=== PATIENT | female | born 1955 | race Caucasian/White ===

== ENCOUNTER 2017-09-27 21:15 | Emergency (ER) | payer OTHER ==
[2017-09-27 21:25] VITALS: BP 114/75; PULSE 90; RESP 18; TEMP 98.2
[2017-09-27] MEDS ORDERED: LIDOCAINE 1% INJ 10MG/ML (20 ML MDV) SQ ONE (22:04)
--- NOTE | 2017-09-27 22:08 | ED ---
Wound/Laceration HPI - General Chief Complaint: Wound/Laceration Stated Complaint: leg lac Time Seen by Provider: 09/27/17 21:45 Source: patient, RN notes reviewed Mode of arrival: wheelchair Limitations: no limitations - History of Present Illness Initial Comments: This is a 61-year-old female who presents to the emergency department with chief complaint of right leg laceration. Patient states that approximately one and half hours ago she ran into the corner of a sheet of wood. She states that she sustained a laceration to her right castle. Patient does state that she is up -to-date with her tetanus vaccination. Patient states that she is currently on Brilinta, a blood thinner. Denies any other injuries or trauma. Denies fevers or chills, chest pain or shortness of breath, abdominal pain, nausea or vomiting. - Related Data Allergies Allergy/AdvReac Type Severity Reaction Status Date / Time naproxen [From Aleve] Allergy Anaphylaxis Verified 09/27/17 21:22 Review of Systems ROS Statement: Those systems with pertinent positive or pertinent negative responses have been documented in the HPI. ROS Other: All systems not noted in ROS Statement are negative. Past Medical History Past Medical History: Osteoarthritis (OA) History of Any Multi-Drug Resistant Organisms: None Reported Past Surgical History: Back Surgery, Cholecystectomy, Heart Catheterization With Stent, Hysterectomy, Joint Replacement Smoking Status: Never smoker Past Alcohol Use History: None Reported Past Drug Use History: None Reported General Exam - General Exam Comments Initial Comments: General: Awake and alert, well-developed; in no apparent distress. HEENT: Head atraumatic, normocephalic. Pupils are equal, round and reactive to light. Extraocular movements intact. Oropharynx moist without erythema or exudate. Neck: Supple. Normal ROM. Cardiovascular: Regular rate and rhythm. No murmurs, rubs or gallops. Chest symmetrical. Pedal pulses are 2+ equal and palpable bilaterally. Respiratory: Lungs clear to auscultation bilaterally. No wheezes, rales or rhonchi. Normal respiratory effort with no use of accessory muscles. Musculoskeletal: Normal ROM, no tenderness bilateral upper and lower extremities. Skin: [place], warm and dry with an approximately 10 cm "L-shaped" laceration to the right mid castle. Bleeding remains active but easily controlled and minimal. Neurological: Alert and oriented x3. CN II-XII grossly intact. Speech is fluent and answers are appropriate. No focal neuro deficits. Psychiatric: Normal mood and affect. No overt signs of depression or anxiety noted. Limitations: no limitations Course Vital Signs 09/27/17 21:22 Temperature 98.2 F Pulse Rate 90 Respiratory 18 Rate Blood Pressure 114/75 O2 Sat by Pulse 97 Oximetry Procedures - Laceration Laceration #1 Consent Obtained: verbal consent Indication: laceration Site: lower extremity (right mid castle) Size (cm): 10 Description: flap ("L-shaped") Depth: simple, single layer Anesthesia Technique: local infiltration Amount (mls): 5 Pre-repair: wound explored, irrigated extensively, deep structures intact Type of Sutures: nylon Size of Sutures: 3-0 Number of Sutures: 11 Technique: simple, interrupted Patient Tolerated Procedure: well, no complications Medical Decision Making - Medical Decision Making This is a 61-year-old female who presented to the emergency department with chief complaint of right castle laceration. Patient ran into a sheet of wood. She sustained an approximately 10 cm "L-shaped" laceration to the right mid castle. Patient is currently on Brilinta, a blood thinner. An x-ray was obtained which revealed no acute bony abnormalities. Wound was irrigated extensively and 11 sutures were placed. Patient tolerated well without complication. She is neurovascularly intact. Recommended removal of sutures in 10-14 days. Recommended monitoring for any signs of infection. Patient states that she is up-to-date with tetanus vaccination. Vital signs are stable and patient is in no acute distress. She will be discharged home at this time. All questions answered. - Radiology Data Radiology results: report reviewed, image reviewed X-ray right tibia and fibula impression: No bony abnormality. Soft tissue swelling. Disposition Clinical Impression: Laceration of right leg excluding thigh Disposition: HOME SELF-CARE Condition: Good Instructions: Care For Your Stitches (ED), Laceration (ED) Additional Instructions: Please have sutures removed in 10-14 days. Please monitor for any signs of infection including increase in redness, swelling and warmth to the area. Please follow up with primary care provider within 1-2 days. Return to emergency department if symptoms should worsen or any concerns arise. Is patient prescribed a controlled substance at d/c from ED?: No Referrals: Nonstaff,Physician [Primary Care Provider] - 1-2 days Time of Disposition: 22:52
--- NOTE | 2017-09-27 22:24 | XR ---
EXAMINATION TYPE: XR tibia fibula RT DATE OF EXAM: 09/27/2017 COMPARISON: NONE HISTORY: Laceration TECHNIQUE: 2 views FINDINGS: There is a right knee prosthesis. I see no fracture nor dislocation. Ankle joint appears in tact. There is anterior soft tissue swelling over the lower tibia. IMPRESSION: No bony abnormality. Soft tissue swelling.
== END 2017-09-27 23:17 | disposition home or self-care (01) ==
LOC: EC 21:15
DX: S81.811A Laceration without foreign body, right lower leg, initial encounter (principal); Z88.6 Allergy status to analgesic agent; Z95.5 Presence of coronary angioplasty implant and graft; W45.8XXA Other foreign body or object entering through skin, initial encounter; Y93.02 Activity, running
CPT/HCPCS: 73590; 99283; 12004; J2001

== ENCOUNTER 2020-08-27 20:23 | Emergency (ER) | payer MEDICARE, OTHER ==
[2020-08-27] MEDS ORDERED: methylPREDNISolone SOD SUCCI 125 MG/2 ML VIAL IV STA (21:00)
[2020-08-27] MEDS ORDERED: IPRATROPIUM-ALBUTEROL 3 ML NEB INHALATION STA (21:00)
[2020-08-27 21:06] VITALS: TEMP 97.9
--- NOTE | 2020-08-27 21:22 | ED ---
General Adult HPI - General Chief complaint: Shortness of Breath Stated complaint: TOMY Time Seen by Provider: 08/27/20 20:41 Source: EMS Mode of arrival: EMS Limitations: no limitations - History of Present Illness Initial comments: 64-year-old female presents to the emergency room for a chief complaint of shortness of breath. Patient reports she has a history of chronic bronchitis and COPD and feels like she is having a flare. She also has a head cold consisting of congestion, and cough. Patient states this started about 4 days ago but has worsened over the past 2 days. States she has been doing her breathing treatments at home but feel she needs steroids. She denies chest pain.Patient has no other complaints at this time including chest pain, abdominal pain, nausea or vomiting, headache, or visual changes. - Related Data Previous Rx's Medication Instructions Recorded RX: Azithromycin [Zithromax Z-pack 250 mg PO DIRECTED #6 tab 08/27/20 (6 tabs)] RX: predniSONE 50 mg PO DAILY #5 tablet 08/27/20 Allergies Allergy/AdvReac Type Severity Reaction Status Date / Time naproxen [From Aleve] Allergy Anaphylaxis Verified 09/27/17 21:22 Review of Systems ROS Statement: Those systems with pertinent positive or pertinent negative responses have been documented in the HPI. ROS Other: All systems not noted in ROS Statement are negative. Past Medical History Past Medical History: Osteoarthritis (OA) History of Any Multi-Drug Resistant Organisms: None Reported Past Surgical History: Back Surgery, Cholecystectomy, Heart Catheterization With Stent, Hysterectomy, Joint Replacement Past Psychological History: No Psychological Hx Reported Past Alcohol Use History: None Reported Past Drug Use History: None Reported General Exam Limitations: no limitations General appearance: alert, in no apparent distress Head exam: Present: atraumatic, normocephalic, normal inspection Eye exam: Present: normal appearance, PERRL, EOMI. Absent: scleral icterus, conjunctival injection, periorbital swelling ENT exam: Present: normal exam, mucous membranes moist Neck exam: Present: normal inspection. Absent: tenderness, meningismus, lymphadenopathy Respiratory exam: Present: wheezes Cardiovascular Exam: Present: regular rate, normal rhythm, normal heart sounds. Absent: systolic murmur, diastolic murmur, rubs, gallop, clicks GI/Abdominal exam: Present: soft, normal bowel sounds. Absent: distended, tenderness, guarding, rebound, rigid Course Vital Signs 08/27/20 08/27/20 08/27/20 20:58 21:48 22:12 Temperature 97.9 F Pulse Rate 87 84 92 Respiratory 22 Rate Blood Pressure 148/80 O2 Sat by Pulse 92 L Oximetry EKG Findings - EKG Comments: EKG Findings:: Normal sinus rhythm, ventricular rate 83, PA interval 148, QTC 462 Medical Decision Making - Medical Decision Making Vitals are stable. Patient is well-appearing. She is wheezy on exam but no respiratory distress. Initially 92% on room air. She adamantly refuses COVID- 19 test despite my strong recommendation to have this performed. CBC CMP unremarkable. EKG does not show any evidence of ST elevation. Troponin negative. Chest x-ray reveals pleural reaction and atelectasis at the lung base without heart failure. Patient was given a breathing treatment in the emesis as well as 2 DuoNeb's here in the ER and IV steroids. Patient is feeling significantly better. I did offer patient admission to the hospital but she adamantly wants to go home. We will start her on oral steroids and a Z-Deion. She will return for worsening symptoms otherwise follow-up with primary care. - Lab Data Result diagrams: 08/27/20 21:07 08/27/20 21:07 Lab Results 08/27/20 08/27/20 08/27/20 Range/Units 21:07 21:07 21:07 WBC 7.0 (3.8-10.6) k/uL RBC 4.25 (3.80-5.40) m/uL Hgb 14.0 (11.4-16.0) gm/dL Hct 42.3 (34.0-46.0) % MCV 99.4 (80.0-100.0) fL MCH 33.0 (25.0-35.0) pg MCHC 33.2 (31.0-37.0) g/dL RDW 13.8 (11.5-15.5) % Plt Count 175 (150-450) k/uL MPV 8.6 Neutrophils % 63 % Lymphocytes % 22 % Monocytes % 10 % Eosinophils % 3 % Basophils % 1 % Neutrophils # 4.4 (1.3-7.7) k/uL Lymphocytes # 1.6 (1.0-4.8) k/uL Monocytes # 0.7 (0-1.0) k/uL Eosinophils # 0.2 (0-0.7) k/uL Basophils # 0.1 (0-0.2) k/uL PT 9.9 (9.0-12.0) sec INR 0.9 (<1.2) APTT 20.1 L (22.0-30.0) sec Sodium 139 (137-145) mmol/L Potassium 4.1 (3.5-5.1) mmol/L Chloride 108 H (98-107) mmol/L Carbon Dioxide 26 (22-30) mmol/L Anion Gap 5 mmol/L BUN 10 (7-17) mg/dL Creatinine 1.00 (0.52-1.04) mg/dL Est GFR (CKD-EPI)AfAm 68 (>60 ml/min/1.73 sqM) Est GFR (CKD-EPI)NonAf 59 (>60 ml/min/1.73 sqM) Glucose 103 H (74-99) mg/dL Calcium 8.4 (8.4-10.2) mg/dL Total Bilirubin 0.3 (0.2-1.3) mg/dL AST 26 (14-36) U/L ALT 18 (4-34) U/L Alkaline Phosphatase 64 (38-126) U/L Troponin I (0.000-0.034) ng/mL NT-Pro-B Natriuret Pep pg/mL Total Protein 5.8 L (6.3-8.2) g/dL Albumin 3.4 L (3.5-5.0) g/dL 08/27/20 08/27/20 Range/Units 21:07 21:07 WBC (3.8-10.6) k/uL RBC (3.80-5.40) m/uL Hgb (11.4-16.0) gm/dL Hct (34.0-46.0) % MCV (80.0-100.0) fL MCH (25.0-35.0) pg MCHC (31.0-37.0) g/dL RDW (11.5-15.5) % Plt Count (150-450) k/uL MPV Neutrophils % % Lymphocytes % % Monocytes % % Eosinophils % % Basophils % % Neutrophils # (1.3-7.7) k/uL Lymphocytes # (1.0-4.8) k/uL Monocytes # (0-1.0) k/uL Eosinophils # (0-0.7) k/uL Basophils # (0-0.2) k/uL PT (9.0-12.0) sec INR (<1.2) APTT (22.0-30.0) sec Sodium (137-145) mmol/L Potassium (3.5-5.1) mmol/L Chloride (98-107) mmol/L Carbon Dioxide (22-30) mmol/L Anion Gap mmol/L BUN (7-17) mg/dL Creatinine (0.52-1.04) mg/dL Est GFR (CKD-EPI)AfAm (>60 ml/min/1.73 sqM) Est GFR (CKD-EPI)NonAf (>60 ml/min/1.73 sqM) Glucose (74-99) mg/dL Calcium (8.4-10.2) mg/dL Total Bilirubin (0.2-1.3) mg/dL AST (14-36) U/L ALT (4-34) U/L Alkaline Phosphatase (38-126) U/L Troponin I <0.012 (0.000-0.034) ng/mL NT-Pro-B Natriuret Pep 332 pg/mL Total Protein (6.3-8.2) g/dL Albumin (3.5-5.0) g/dL Disposition Clinical Impression: COPD exacerbation Disposition: HOME SELF-CARE Condition: Fair Instructions (If sedation given, give patient instructions): COPD (Chronic Obstructive Pulmonary Disease) (ED) Additional Instructions: Please take steroid and antibiotic starting tomorrow as you were given a dose here in the ER tonight. Please follow-up with your doctor in one to 2 days. If symptoms are worsening at home return to the emergency room. Prescriptions: RX: predniSONE 50 mg PO DAILY #5 tablet RX: Azithromycin [Zithromax Z-pack (6 tabs)] 250 mg PO DIRECTED #6 tab Is patient prescribed a controlled substance at d/c from ED?: No Referrals: Nonstaff,Physician [Primary Care Provider] - 1-2 days Time of Disposition: 22:34
[2020-08-27 21:26] LABS: Basophils # (A) 0.1 k/uL (0-0.2); Basophils % (A) 1 %; Eosinophils # (A) 0.2 k/uL (0-0.7); Eosinophils % (A) 3 %; HCT 42.3 % (34.0-46.0); Lymphocytes # (A) 1.6 k/uL (1.0-4.8); Lymphocytes % (A) 22 %; MCHC 33.2 g/dL (31.0-37.0); MCV 99.4 fL (80.0-100.0); Mean Platelet Volume 8.6; Monocytes # (A) 0.7 k/uL (0-1.0); Monocytes % (A) 10 %; Neutrophils # (A) 4.4 k/uL (1.3-7.7); Neutrophils % (A) 63 %; Platelet Count 175 k/uL (150-450); RBC 4.25 m/uL (3.80-5.40); RDW 13.8 % (11.5-15.5)
--- NOTE | 2020-08-27 21:34 | XR ---
EXAMINATION TYPE: XR chest 2V DATE OF EXAM: 08/27/2020 COMPARISON: NONE HISTORY: Difficulty breathing TECHNIQUE: 2 views FINDINGS: Heart appears borderline enlarged. There is no heart failure. There is some mild linear den sity at the lung bases. Bony thorax is intact. There is no pleural effusion. IMPRESSION: There is some pleural reaction and atelectasis at the lung bases. No heart failure.
[2020-08-27 21:42] LABS: INR 0.9 (<1.2); Prothrombin Time 9.9 sec (9.0-12.0)
[2020-08-27 21:48] LABS: Partial Thromboplastin Time 20.1 sec (22.0-30.0)
[2020-08-27 21:51] LABS: Albumin 3.4 g/dL (3.5-5.0); Calcium 8.4 mg/dL (8.4-10.2); Total Bilirubin 0.3 mg/dL (0.2-1.3); Total Protein 5.8 g/dL (6.3-8.2)
[2020-08-27 22:19] LABS: Potassium 4.1 mmol/L (3.5-5.1)
[2020-08-27] MEDS ORDERED: AZITHROMYCIN 500 MG TAB PO STA (22:32)
[2020-08-27 23:01] VITALS: BP 133/71; PULSE 78; RESP 20
== END 2020-08-27 23:01 | disposition home or self-care (01) ==
LOC: EC 20:23
DX: J44.1 Chronic obstructive pulmonary disease with (acute) exacerbation (principal); M19.90 Unspecified osteoarthritis, unspecified site
CPT/HCPCS: 36415; 94640; 93005; 83880; 80053; 84484; 85025; 85610; 85730; 71046; 99285; 96374; J2930

== ENCOUNTER 2020-08-30 20:02 | Observation (INO) | payer MEDICARE, OTHER ==
[2020-08-30] MEDS ORDERED: ASPIRIN 81 MG PO STA (20:27)
[2020-08-30] MEDS ORDERED: NITROGLYCERIN SL TABS 0.4 MG TAB SUBLINGUAL STA (20:27)
[2020-08-30 20:42] LABS: Basophils % (A) 0 %; Eosinophils # (A) 0.1 k/uL (0-0.7); Eosinophils % (A) 1 %; HCT 44.3 % (34.0-46.0); HGB 13.7 gm/dL (11.4-16.0); Lymphocytes # (A) 1.3 k/uL (1.0-4.8); Lymphocytes % (A) 11 %; MCH 31.3 pg (25.0-35.0); MCHC 30.9 g/dL (31.0-37.0); MCV 101.3 fL (80.0-100.0); Macrocytosis Slight; Mean Platelet Volume 8.7; Monocytes # (A) 0.7 k/uL (0-1.0); Monocytes % (A) 6 %; Neutrophils # (A) 10.2 k/uL (1.3-7.7); Neutrophils % (A) 82 %; Platelet Count 187 k/uL (150-450); RBC 4.37 m/uL (3.80-5.40); RDW 13.9 % (11.5-15.5); WBC 12.4 k/uL (3.8-10.6)
--- NOTE | 2020-08-30 20:46 | ED ---
Chest Pain HPI - General Chief Complaint: Chest Pain Stated Complaint: Chest Pain, TOMY Time Seen by Provider: 08/30/20 20:06 Source: patient, EMS Mode of arrival: EMS Limitations: no limitations - History of Present Illness Initial Comments: Is a 64-year-old female to history of CAD, CHF who presents emergency department for chest pain. The patient states it started about an hour or so prior to arrival. She describes as a pressure-like sensation in the center of her chest. She states it's nonradiating. Not worse with anything in particular. She did take a nitroglycerin tablet home without any relief. She did not take any aspirin today. She denies any lower [place] pain or swelling. Patient states that she was seen here few days ago and diagnosed with bronchopneumonia. She was started on steroids and antibiotics. She states that she has been feeling improved however then developed chest pain today. She denies any lightheadedness, nausea, sweatiness. The patient does state that she recently moved back from [place] and drove was about 3 weeks ago. - Related Data Home Medications Medication Instructions Recorded Confirmed Advair (Unknown Dose) 1 puff INHALATION RT-BID 08/30/20 08/30/20 Azithromycin [Zithromax Z-pack (6 See Taper PO DIRECTED 08/30/20 08/30/20 tabs)] Clopidogrel [Plavix] 75 mg PO DAILY 08/30/20 08/30/20 Evolocumab [Repatha Syringe] 140 mg SQ Q14D 08/30/20 08/30/20 Ezetimibe [Zetia] 10 mg PO HS 08/30/20 08/30/20 Famotidine [Pepcid] 20 mg PO DAILY 08/30/20 08/30/20 Ipratropium-Albuterol Nebulize 3 ml INHALATION RT-TID 08/30/20 08/30/20 [Duoneb 0.5 mg-3 mg/3 ml Soln] Isosorbide Mononitrate ER [Imdur] 30 mg PO DAILY 08/30/20 08/30/20 Metoprolol Succinate (ER) [Toprol 25 mg PO HS 08/30/20 08/30/20 Xl] Montelukast [Singulair] 10 mg PO DAILY 08/30/20 08/30/20 Nitroglycerin Sl Tabs [Nitrostat] 0.4 mg SUBLINGUAL Q5M PRN 08/30/20 08/30/20 Potassium Chloride ER [K-Dur 20] 20 meq PO DAILY 08/30/20 08/30/20 Torsemide [Demadex] 10 mg PO DAILY 08/30/20 08/30/20 Previous Rx's Medication Instructions Recorded predniSONE 50 mg PO DAILY #5 tablet 08/27/20 Allergies Allergy/AdvReac Type Severity Reaction Status Date / Time naproxen [From Aleve] Allergy Anaphylaxis Verified 09/27/17 21:22 Review of Systems ROS Statement: Those systems with pertinent positive or pertinent negative responses have been documented in the HPI. ROS Other: All systems not noted in ROS Statement are negative. EKG Findings - EKG Comments: EKG Findings:: EKG showing normal sinus rhythm with a rate of 91. There is no abnormal ST segment changes. There are T-wave inversions in V2 through V4. T- wave flattening in the inferior and lateral leads. QTC is 4:30. No ectopy. Past Medical History Past Medical History: COPD, Osteoarthritis (OA) History of Any Multi-Drug Resistant Organisms: None Reported Past Surgical History: Back Surgery, Cholecystectomy, Heart Catheterization With Stent, Hysterectomy, Joint Replacement Past Psychological History: No Psychological Hx Reported Smoking Status: Current every day smoker Past Alcohol Use History: Occasional Past Drug Use History: None Reported General Exam - General Exam Comments Initial Comments: Constitutional: Awake alert Appears comfortable Head: Normocephalic atraumatic Eyes: no conjunctival injection No scleral icterus EOMI Neck: No JVD Supple Heart: Regular rate rhythm normal S1-S2 no murmurs Lungs: Clear to auscultation bilaterally No wheezing No rales Abdomen: Soft nondistended nontender Extremities: Non edematous DP pulses intact Radial pulses intact Neuro: A&Ox3 No focal neurologic deficits Psych: Appropriate mood and affect Limitations: no limitations Course Vital Signs 08/30/20 08/30/20 20:17 20:36 Temperature 98.9 F Pulse Rate 98 94 Respiratory 20 16 Rate Blood Pressure 182/86 150/86 O2 Sat by Pulse 100 97 Oximetry - Reevaluation(s) Reevaluation #1: 08/30/20 22:38 Patient states that she feels much improved after morphine. Patient was resting comfortably on my reevaluation. Chest Pain MDM - MDM This is a 64-year-old female who presents emergency department for chest pain. The patient did have some ischemic changes on EKG with T-wave inversions anteriorly however troponin was negative. Unsure what the patient's baseline EKG is reviewed as a history of CAD with heart stenting and thus I do not feel that it is safe for her to go home. She's can be monitored in the hospital. She was given aspirin. Cardiology consultation was placed. Arely accepted the patient for admission on behalf of Dr. Yip. Disposition Clinical Impression: Chest pain Disposition: ADMITTED IP TO THIS HOSP Condition: Stable Referrals: Nonstaff,Physician [Primary Care Provider] - 1-2 days
--- NOTE | 2020-08-30 20:58 | XR ---
EXAMINATION TYPE: XR chest 1V portable DATE OF EXAM: 08/30/2020 COMPARISON: 08/27/2020 HISTORY: Chest pain TECHNIQUE: Single frontal view of the chest is obtained. FINDINGS: There is no focal air space opacity, pleural effusion, or pneumothorax seen. The cardiac silhouette size is stable and enlarged, there are overlying leads, the aorta is dense and there are p ostop changes in the cervical spine. The osseous structures are intact, possible spinal curvature. IMPRESSION: No acute process.
[2020-08-30 20:59] LABS: Albumin 3.7 g/dL (3.5-5.0); Calcium 9.3 mg/dL (8.4-10.2); Magnesium 2.1 mg/dL (1.6-2.3); Potassium 4.3 mmol/L (3.5-5.1); Total Bilirubin 0.4 mg/dL (0.2-1.3); Total Protein 6.2 g/dL (6.3-8.2)
[2020-08-30 21:11] LABS: D-Dimer 0.58 mg/L FEU (<0.60); INR 0.9 (<1.2); Prothrombin Time 9.7 sec (9.0-12.0)
[2020-08-30 21:33] LABS: Partial Thromboplastin Time 18.2 sec (22.0-30.0)
[2020-08-30] MEDS ORDERED: MORPHINE SULFATE 4 MG/ML SYRINGE IVP STA (21:48)
[2020-08-30] MEDS ORDERED: NITROGLYCERIN SL TABS 0.4 MG TAB SUBLINGUAL PRN (22:29)
[2020-08-31] MEDS ORDERED: ACETAMINOPHEN TAB 325 MG TAB PO PRN (07:55)
[2020-08-31] MEDS ORDERED: ASPIRIN 325 MG TAB PO SCH (09:00)
[2020-08-31] MEDS ORDERED: HYDROcodone/APAP 5-325MG 1 EACH TAB PO STA (10:03)
[2020-08-31] MEDS ORDERED: IPRATROPIUM-ALBUTEROL 3 ML NEB INHALATION SCH (12:00)
[2020-08-31 13:12] VITALS: BP 119/87; PULSE 87; RESP 16; TEMP 98.4
[2020-08-31 13:25] LABS: Chol/HDL Ratio 1.85; LDL Cholesterol,Calculated 27.4 mg/dL (0.0-131.0); VLDL Calculation 18.6 mg/dL (5.00-40.00)
--- NOTE | 2020-08-31 13:44 | ECHOF ---
Referral Reason:POST MEASUREMENTS -------- HEIGHT: 154.9 cm WEIGHT: 90.7 kg BP: IVSd: 0.8 cm (0.6 - 1.1) LVIDd: 3.0 cm (3.9 - 5.3) LVPWd: 1.1 cm (0.6 - 1.1) EDV(Teich): 35 ml IVSs: 1.5 cm LVIDs: 1.9 cm LVPWs: 1.7 cm %IVS Thck: 99 % ESV(Teich): 12 ml EF(Teich): 66 % %FS: 35 % SV(Teich): 23 ml RVIDd: 2.8 cm (< 3.3) IVC: 15.27 mm Ao Diam: 3.0 cm (2.0 - 3.7) LA Diam: 3.0 cm (2.7 - 3.8) AV Cusp: 2.2 cm (1.5 - 2.6) EPSS: 1.1 cm MV E Osvaldo: 0.89 m/s MV DecT: 279 ms MV Dec [place]: 3.2 m/s MV A Osvaldo: 0.74 m/s MV E/A Ratio: 1.20 MV PHT: 81 ms MR Vmax: 2.90 m/s MR maxP.58 mmHg AV Vmax: 1.18 m/s AV maxP.56 mmHg TR Vmax: 2.55 m/s TR maxP.95 mmHg RAP: 5.00 mmHg RVSP: 30.95 mmHg MV EF SLOPE: 58.51 mm/s (70 - 150) MV EXCURSION: 13.19 mm (> 18.000) FINDINGS -------- This was a technically adequate study. The left ventricular size is normal. Left ventricular wall thickness is normal. Overall left vent ricular systolic function is normal with, an EF between 55 - 60 %. The right ventricle is normal in size. The left atrial size is normal. The right atrial size is normal. The aortic valve is trileaflet and appears structurally normal. The mitral valve is normal. [id number] mitral regurgitation is present. The tricuspid valve appears structurally normal. Mild tricuspid regurgitation present. Right vent ricular systolic pressure is normal at < 35 mmHg. The pulmonic valve was not well visualized. The aortic root size is normal. Normal inferior vena cava with normal inspiratory collapse consistent with estimated right atrial pre ssure of 5 mmHg. There is no pericardial effusion. CONCLUSIONS -------- 1. The left ventricular size is normal. 2. Left ventricular wall thickness is normal. 3. Overall left ventricular systolic function is normal with, an EF between 55 - 60 %. 4. [id number] mitral regurgitation is present. 5. Mild tricuspid regurgitation present. 6. There is no pericardial effusion. PROGRAM MANAGEMENT INTERN: Joanna Johnson RDCS
--- NOTE | 2020-08-31 14:07 | P.DS ---
Providers Date of admission: 08/30/20 22:29 Attending physician: Benjamin Yip Consults: 08/30/20 22:29 Consult Physician Urgent Consulting Provider: [facility] Consult Reason/Comments: chest pain Do you want consulting provider notified?: Yes, Notify in am Primary care physician: Physician Nonstaff Hospital Course: Please refer to my history of present illness for further details Patient Condition at Discharge: Stable Plan - Discharge Summary New Discharge Prescriptions: New Cefuroxime Axetil [Ceftin] 500 mg PO BID 3 Days #6 tab predniSONE 10 mg PO DAILY #30 tab Continue Isosorbide Mononitrate ER [Imdur] 30 mg PO DAILY Metoprolol Succinate (ER) [Toprol XL] 25 mg PO HS Clopidogrel [Plavix] 75 mg PO DAILY Montelukast [Singulair] 10 mg PO DAILY Famotidine [Pepcid] 20 mg PO DAILY Ezetimibe [Zetia] 10 mg PO HS Evolocumab [Repatha Syringe] 140 mg SQ Q14D Advair (Unknown Dose) 1 puff INHALATION RT-BID Nitroglycerin Sl Tabs [Nitrostat] 0.4 mg SUBLINGUAL Q5M PRN PRN Reason: Chest Pain Potassium Chloride ER [K-Dur 20] 20 meq PO DAILY Ipratropium-Albuterol Nebulize [Duoneb 0.5 mg-3 mg/3 ml Soln] 3 ml INHALATION RT-TID Torsemide [Demadex] 10 mg PO DAILY Discontinued predniSONE 50 mg PO DAILY #5 tablet Azithromycin [Zithromax Z-pack (6 tabs)] See Taper PO DIRECTED Discharge Medication List Advair (Unknown Dose) 1 puff INHALATION RT-BID 08/30/20 [History] Clopidogrel [Plavix] 75 mg PO DAILY 08/30/20 [History] Evolocumab [Repatha Syringe] 140 mg SQ Q14D 08/30/20 [History] Ezetimibe [Zetia] 10 mg PO HS 08/30/20 [History] Famotidine [Pepcid] 20 mg PO DAILY 08/30/20 [History] Ipratropium-Albuterol Nebulize [Duoneb 0.5 mg-3 mg/3 ml Soln] 3 ml INHALATION RT-TID 08/30/20 [History] Isosorbide Mononitrate ER [Imdur] 30 mg PO DAILY 08/30/20 [History] Metoprolol Succinate (ER) [Toprol XL] 25 mg PO HS 08/30/20 [History] Montelukast [Singulair] 10 mg PO DAILY 08/30/20 [History] Nitroglycerin Sl Tabs [Nitrostat] 0.4 mg SUBLINGUAL Q5M PRN 08/30/20 [History] Potassium Chloride ER [K-Dur 20] 20 meq PO DAILY 08/30/20 [History] Torsemide [Demadex] 10 mg PO DAILY 08/30/20 [History] Cefuroxime Axetil [Ceftin] 500 mg PO BID 3 Days #6 tab 08/31/20 [Rx] predniSONE 10 mg PO DAILY #30 tab 08/31/20 [Rx] Follow up Appointment(s)/Referral(s): Pattie Mcneill MD [STAFF PHYSICIAN] - 1 Week Royce Menendez MD [STAFF PHYSICIAN] - 1 Week Michelle Bob MD [STAFF PHYSICIAN] - 1 Week Patient Instructions/Handouts: Chest Pain (GEN) Discharge Disposition: HOME SELF-CARE
--- NOTE | 2020-08-31 14:07 | P.HPIM ---
History of Present Illness 64-year-old the female in came in with complaints of shortness of breath and cough with a greenish sputum production patient was comparing of some muscular skin the chest from coughing. Patient did take nitroglycerin for chest pain without any relief. Patient had history of coronary artery disease with cardiac catheterization and stenting in the past patient can use to smoke smokes about the 2-3 cigarettes a day trying to quit smoking. Patient denied any fever chills patient doesn't use any oxygen at home patient is saturating at 97% on 2 L of oxygen. Patient is insisting on going home. Patient was evaluated by cardiology and cleared from cardiology perspective for this chest pain troponins were obtained which were negative, echocardiogram did not show any significant abnormality. EKG showed some nonspecific ST-T wave changes in the anterior leads. Patient was discharged home after her visit to ER about 4 days ago for COPD and bronchitis and was discharged on prednisone and azithromycin. Review of Systems REVIEW OF SYSTEMS: CONSTITUTIONAL: No fever, no malaise, no fatigue. HEENT: No recent visual problems or hearing problems. Denied any sore throat. CARDIOVASCULAR: No orthopnea, PND, no palpitations, no syncope. PULMONARY: no hemoptysis. GASTROINTESTINAL: No diarrhea, no nausea, no vomiting, no abdominal pain. NEUROLOGICAL: No headaches, no weakness, no numbness. HEMATOLOGICAL: Denies any bleeding or petechiae. GENITOURINARY: Denies any burning micturition, frequency, or urgency. MUSCULOSKELETAL/RHEUMATOLOGICAL: Denies any joint pain, swelling, or any muscle pain. ENDOCRINE: Denies any polyuria or polydipsia. The rest of the 14-point review of systems is negative. Past Medical History Past Medical History: COPD, Osteoarthritis (OA) History of Any Multi-Drug Resistant Organisms: None Reported Past Surgical History: Back Surgery, Cholecystectomy, Heart Catheterization With Stent, Hysterectomy, Joint Replacement Past Psychological History: No Psychological Hx Reported Smoking Status: Current every day smoker Past Alcohol Use History: Occasional Past Drug Use History: None Reported Medications and Allergies Home Medications Medication Instructions Recorded Confirmed Type Advair (Unknown Dose) 1 puff INHALATION RT-BID 08/30/20 08/30/20 History Clopidogrel [Plavix] 75 mg PO DAILY 08/30/20 08/30/20 History Evolocumab [Repatha Syringe] 140 mg SQ Q14D 08/30/20 08/30/20 History Ezetimibe [Zetia] 10 mg PO HS 08/30/20 08/30/20 History Famotidine [Pepcid] 20 mg PO DAILY 08/30/20 08/30/20 History Ipratropium-Albuterol Nebulize 3 ml INHALATION RT-TID 08/30/20 08/30/20 History [Duoneb 0.5 mg-3 mg/3 ml Soln] Isosorbide Mononitrate ER [Imdur] 30 mg PO DAILY 08/30/20 08/30/20 History Metoprolol Succinate (ER) [Toprol 25 mg PO HS 08/30/20 08/30/20 History XL] Montelukast [Singulair] 10 mg PO DAILY 08/30/20 08/30/20 History Nitroglycerin Sl Tabs [Nitrostat] 0.4 mg SUBLINGUAL Q5M PRN 08/30/20 08/30/20 History Potassium Chloride ER [K-Dur 20] 20 meq PO DAILY 08/30/20 08/30/20 History Torsemide [Demadex] 10 mg PO DAILY 08/30/20 08/30/20 History Cefuroxime Axetil [Ceftin] 500 mg PO BID 3 Days #6 tab 08/31/20 Rx predniSONE 10 mg PO DAILY #30 tab 08/31/20 Rx Allergies Allergy/AdvReac Type Severity Reaction Status Date / Time naproxen [From Aleve] Allergy Anaphylaxis Verified 09/27/17 21:22 Physical Exam Vitals: Vital Signs Temp Pulse Pulse Resp BP Pulse Ox 08/31/20 13:12 98.4 F 87 16 119/87 94 L 08/31/20 12:58 70 18 08/31/20 12:48 86 18 97 08/31/20 12:34 76 16 120/79 99 08/31/20 11:41 76 16 142/85 97 08/31/20 10:39 81 16 129/72 97 08/31/20 07:48 82 16 125/75 95 08/31/20 05:00 68 18 134/72 96 08/31/20 02:00 76 18 136/62 97 08/31/20 00:19 97 08/30/20 23:22 82 16 147/72 98 08/30/20 22:00 78 08/30/20 20:36 94 16 150/86 97 08/30/20 20:17 98.9 F 98 20 182/86 100 Intake and Output 08/30/20 08/31/20 08/31/20 22:59 06:59 14:59 Other: Weight 90.718 kg PHYSICAL EXAMINATION: GENERAL: The patient is alert and oriented x3, not in any acute distress. Well developed, well nourished. HEENT: Pupils are round and equally reacting to light. EOMI. No scleral icterus. No conjunctival pallor. Normocephalic, atraumatic. No pharyngeal erythema. No thyromegaly. CARDIOVASCULAR: S1 and S2 present. No murmurs, rubs, or gallops. PULMONARY: Bilateral rhonchi mild ABDOMEN: Soft, nontender, nondistended, normoactive bowel sounds. No palpable organomegaly. MUSCULOSKELETAL: No joint swelling or deformity. EXTREMITIES: No cyanosis, clubbing, or pedal edema. NEUROLOGICAL: Gross neurological examination did not reveal any focal deficits. SKIN: No rashes. Results CBC & Chem 7: 08/30/20 20:29 08/30/20 20:29 Labs: Abnormal Lab Results - Last 24 Hours (Table) 08/30/20 08/30/20 08/30/20 Range/Units 20:29 20:29 20:29 WBC 12.4 H (3.8-10.6) k/uL MCV 101.3 H (80.0-100.0) fL MCHC 30.9 L (31.0-37.0) g/dL Neutrophils # 10.2 H (1.3-7.7) k/uL APTT 18.2 L (22.0-30.0) sec BUN 18 H (7-17) mg/dL AST 96 H (14-36) U/L ALT 72 H (4-34) U/L Total Protein 6.2 L (6.3-8.2) g/dL Assessment and Plan Plan: -COPD with acute exacerbation with bacterial bronchitis: Patient will be discharged on Ceftin prednisone patient is saturating well will discuss any oxygen will ambulate before her discharge and she saturating well patient will be discharged. -Chest pain musculoskeletal noncardiac atypical ruled out acute coronary syndromes cleared by cardiology -Leukocytosis reactive in nature -Rule out PE with the d-dimer -Coronary artery disease with previous stents -Mildly elevated liver enzymes no further intervention can be repeated as an outpatient on her visit to PCP, patient will be this referred to primary care physician. -Continued nicotine use: Counseling was provided, I counseled the patient that if she smokes again she may end up getting readmitted to the hospital. -Leukocytosis secondary to bronchitis
--- NOTE | 2020-08-31 21:24 | CONS ---
CONSULTATION CHIEF COMPLAINT: Chest pain. Jennifer is a 64-year-old lady with history of COPD, coronary artery disease, status post prior angioplasty, carotid stenosis status post left carotid endarterectomy, who presented to [facility] Emergency Room complaining of shortness of breath and chest discomfort. The patient recently had been diagnosed with bronchitis, was treated with steroids, antibiotics and nebulizers at home, but her shortness of breath got worse and she had chest tightness due to which she came to the ER. At the time of my evaluation she appears comfortable at rest and is free of chest pain. Her EKG shows sinus rhythm with nonspecific T-wave inversions in the precordial leads. She has had three sets of troponins that are all within normal limits. The patient tells me that she had a cardiac catheterization about 6 months ago in [place] and was told that she did not have significant obstructive CAD. Her clinical presentation mostly seems to be related to COPD exacerbation and she needs aggressive therapy for the same including antibiotic, steroids and nebulizers along with oxygen therapy. When she is discharged, she is going to follow up with me to establish herself with a pen rider locally and she will undergo a stress test if necessary. I am going to review her outpatient records at that time. PAST MEDICAL HISTORY: Significant for COPD, hypertension, coronary artery disease, status post angioplasty, carotid stenosis status post left carotid endarterectomy. MEDICATIONS AT HOME: Included Repatha, K-Dur, prednisone, Ceftin, Zetia, Pepcid, Singulair, Plavix 75 daily, Toprol, Imdur, Nitrostat, Demadex, and DuoNeb. ALLERGIES: NAPROXEN. FAMILY HISTORY: Negative for premature coronary artery disease. SOCIAL HISTORY: Significant for smoking. There is no history of EtOH abuse or drug abuse. REVIEW OF SYSTEMS: HEENT is unremarkable. CARDIAC: As described above. RESPIRATORY: As described above. GI: Negative. GENITOURINARY: Negative. ALLERGY/IMMUNOLOGY: Negative. SKIN: Negative. MUSCULOSKELETAL: Negative for arthritis. PSYCHOSOCIAL: Negative. ENDOCRINE: Negative. DERM: Negative. CONSTITUTIONAL: Negative. ONCOLOGICAL: Negative. TICKETING AGENT: Negative. Rest of the system review is not relevant. PHYSICAL EXAMINATION: Afebrile, heart rate is 87 beats per minute, blood pressure is 120/87, respiratory rate 18. There is no jugular venous distention. Carotid upstroke is normal. There is no bruit. Chest exam reveals diffuse bilateral rhonchi. Heart exam reveals first and second heart sounds. No gallop. No murmur. Abdomen is soft, nontender. Examination of extremities did not reveal any edema. Peripheral pulses are felt. EKG does not reveal ischemic changes. Cardiac enzymes are negative. ASSESSMENT: 1. Precordial chest pain. 2. Acute exacerbation of COPD. 3. CAD status post angioplasty. 4. Dyslipidemia with intolerance to statins. 5. Carotid stenosis status post carotid endarterectomy. PLAN: I will obtain a 2D echo on her and on discharge she will follow up with me and arrange for an outpatient stress test if necessary. MMODL / IJN: [id number] /
== END 2020-08-31 14:50 | disposition home or self-care (01) ==
LOC: EC 20:02 → 6NMEDSUR 22:29
PROVIDERS: ADMIT Hospitalist; ATTEND Hospitalist
DX: J44.1 Chronic obstructive pulmonary disease with (acute) exacerbation (principal); J44.0 Chronic obstructive pulmonary disease with (acute) lower respiratory infection; J40 Bronchitis, not specified as acute or chronic; R07.89 Other chest pain; I25.10 Atherosclerotic heart disease of native coronary artery without angina pectoris; I11.0 Hypertensive heart disease with heart failure; I50.9 Heart failure, unspecified; M19.90 Unspecified osteoarthritis, unspecified site; E78.5 Hyperlipidemia, unspecified; T46.6X5A Adverse effect of antihyperlipidemic and antiarteriosclerotic drugs, initial encounter; F17.210 Nicotine dependence, cigarettes, uncomplicated; R74.8 Abnormal levels of other serum enzymes; I08.1 Rheumatic disorders of both mitral and tricuspid valves; Z79.02 Long term (current) use of antithrombotics/antiplatelets; Z79.51 Long term (current) use of inhaled steroids; Z79.899 Other long term (current) drug therapy; Z88.6 Allergy status to analgesic agent; Z90.49 Acquired absence of other specified parts of digestive tract; Z90.710 Acquired absence of both cervix and uterus; Z95.5 Presence of coronary angioplasty implant and graft; Z96.60 Presence of unspecified orthopedic joint implant; Z86.79 Personal history of other diseases of the circulatory system
CPT/HCPCS: 96374; 99285; 36415; 94640; 94760; 93005 ×2; 93306; 85379; 83880; 80061; 80053; 83735; 84484 ×2; 85025; 85610; 85730; 71045; G0378 ×2; J2270

== ENCOUNTER → 2021-05-17 | Outpatient (CLI) | payer MEDICARE, OTHER ==
--- NOTE | 2021-05-17 09:55 | XR ---
EXAMINATION TYPE: XR KUB DATE OF EXAM: 05/17/2021 COMPARISON: NONE HISTORY: Pain TECHNIQUE: Single supine KUB image of the abdomen is obtained FINDINGS: Small bowel demonstrates no evidence for dilatation or air fluid levels. Gas and fecal material is seen in non-distended colon. No convincing evidence for pneumoperitoneum. No unusual calcifications. The lung bases are clear. The osseous structures are intact. IMPRESSION: 1. Overall nonobstructive bowel gas pattern.
--- NOTE | 2021-05-17 12:56 | CT ---
EXAMINATION TYPE: CT abdomen pelvis w con DATE OF EXAM: 05/17/2021 COMPARISON: No previous CT scan is available for comparison. HISTORY: 65-year-old female, weight loss, mid upper abdominal pain. Chronic GERD CT DLP: 1066 mGycm Automated exposure control for dose reduction was used. TECHNIQUE: Helical acquisition of images was performed from the lung bases through the pelvis. CONTRAST: Performed with Oral Contrast and with IV Contrast, patient injected with 100 mL of Isovue 300. FINDINGS: No definite hepatic focal lesion identified. Previous cholecystectomy. Slightly dilated central intra hepatic biliary tree and CBD, likely related to postcholecystectomy status. Unremarkable spleen and p ancreas. Left adrenal nodule measuring 13 mm, incompletely characterized by this CT scan. Unremarkabl e right adrenal. Scattered bilateral renal cysts without suspicious features, otherwise unremarkable kidneys. Unremark able urinary bladder. Previous hysterectomy. No gross adnexal mass. Unremarkable stomach, duodenum an d small bowel. No gross colonic mass. Scattered arterial atherosclerotic calcifications. No suspicious lymphadenopathy or sizable ascites. Cardiomediastinal shift to the left side with left medial basal subsegmental pulmonary atelectasis. Smaller atelectasis are seen in the right lung base. Lower posterior lumbar fixation. Degenerative changes of the left sacroiliac joint and symphysis pub is. No aggressive bone lesion. IMPRESSION: 13 mm left adrenal nodule, incompletely characterized and could represent an adrenal adenoma. Further dedicated adrenal CT scan can be considered. Otherwise no definite suspicious lesion or lymphadenopathy seen in the abdomen or the pelvis. Inciden oscar findings as described above.
== END | disposition home or self-care (01) ==
LOC: RADCTMAIN 08:42
PROVIDERS: ATTEND Family Medicine
DX: E27.8 Other specified disorders of adrenal gland (principal); K21.9 Gastro-esophageal reflux disease without esophagitis
CPT/HCPCS: 82565; 84520; 74018; 74177; 36415; Q9967 ×2

== ENCOUNTER 2021-06-06 07:33 | Day surgery (SDC) | payer MEDICARE, OTHER ==
[2021-06-04 12:48] VITALS: BMI 30.6
[2021-06-06] MEDS ORDERED: LACTATED RINGERS 1,000 ML IV SCH (07:55)
[2021-06-06 08:29] VITALS: TEMP 98
[2021-06-06] MEDS ORDERED: LIDOCAINE 1% INJ 10MG/ML (20 ML MDV) ONE (08:30)
[2021-06-06] MEDS ORDERED: PROPOFOL 10 MG/ML 20 ML VIAL IV ONE (08:30)
--- NOTE | 2021-06-06 08:43 | P.GSHP ---
History of Present Illness H&P Date: 06/06/21 CHIEF COMPLAINT: GERD HISTORY OF PRESENT ILLNESS: The patient is a 65-year-old female who presents reports gastroesophageal reflux disease. Upper endoscopy was offered for further evaluation and management. PAST MEDICAL HISTORY: Please see list. PAST SURGICAL HISTORY: Please see list. MEDICATIONS: Please see list. ALLERGIES: Please see list. SOCIAL HISTORY: No illicit drug use FAMILY HISTORY: No reports of Crohn disease or ulcerative colitis. REVIEW OF ORGAN SYSTEMS: CONSTITUTIONAL: No reports of fevers or chills. GI: Denies any blood in stools or constipation. PHYSICAL EXAM: VITAL SIGNS: Stable GENERAL: Well-developed and pleasant in no acute distress. HEENT: No scleral icterus. Extraocular movements grossly intact. Moist buccal mucosa. NECK: Supple without lymphadenopathy. CHEST: Unlabored respirations. Equal bilateral excursions. CARDIOVASCULAR: Regular rate and rhythm. Distal 2+ pulses. ABDOMEN: Soft, nondistended. MUSCULOSKELETAL: No clubbing, cyanosis, or edema. ASSESSMENT: 1. Gastroesophageal reflux disease PLAN: 1. Recommend proceeding with an upper endoscopy Past Medical History Past Medical History: COPD, GERD/Reflux, Hyperlipidemia, Hypertension, Myocardial Infarction (ME), Osteoarthritis (OA) Additional Past Medical History / Comment(s): HAD ME AFTER ANAPHYLATIC REACTION TO ALEVE 10 YEARS AGO Last Myocardial Infarction Date:: 10.5 YEARS ? History of Any Multi-Drug Resistant Organisms: None Reported Past Surgical History: Appendectomy, Back Surgery, Cholecystectomy, Heart Catheterization With Stent, Hysterectomy, Joint Replacement, Tonsillectomy Additional Past Surgical History / Comment(s): RT TKA. COLONOSCOPY. EGD. NECK SX X 2. SINUS SX X 2 Past Anesthesia/Blood Transfusion Reactions: Postoperative Nausea & Vomiting (PONV) Date of Last Stent Placement:: 2013 Past Psychological History: No Psychological Hx Reported Smoking Status: Current every day smoker Past Alcohol Use History: Occasional Additional Past Alcohol Use History / Comment(s): SMOKES < 1PPD SINCE AGE 10 Past Drug Use History: None Reported - Past Family History Sister(s) Family Medical History: Cancer Mother Family Medical History: Cancer Medications and Allergies Home Medications Medication Instructions Recorded Confirmed Type Clopidogrel [Plavix] 75 mg PO DAILY 08/30/20 06/04/21 History Evolocumab [Repatha Syringe] 140 mg SQ Q14D 08/30/20 06/04/21 History Isosorbide Mononitrate ER [Imdur] 30 mg PO BID 08/30/20 06/04/21 History Metoprolol Succinate (ER) [Toprol 25 mg PO HS 08/30/20 06/04/21 History XL] Fluticasone/Salmeterol [Advair 1 inhalation PO BID 06/04/21 06/04/21 History 250-50 Diskus] Pantoprazole [Protonix] 40 mg PO BID 06/04/21 06/04/21 History Allergies Allergy/AdvReac Type Severity Reaction Status Date / Time naproxen [From Aleve] Allergy Anaphylaxis Verified 06/04/21 12:30 Surgical - Exam Vital Signs Temp Pulse Resp BP Pulse Ox 98 F 60 20 134/77 95 06/06/21 08:10 06/06/21 08:10 06/06/21 08:10 06/06/21 08:10 06/06/21 08:10
--- NOTE | 2021-06-06 08:44 | P.PCN ---
Date of Procedure: 06/06/21 Description of Procedure: PREOPERATIVE DIAGNOSIS: Gastroesophageal reflux disease. History of hiatal hernia POSTOPERATIVE DIAGNOSIS: Gastritis. Gastroesophageal reflux disease. OPERATION: Esophagogastroduodenoscopy with biopsies along antrum. SURGEON: Clarissa Puente MD ANESTHESIA: MAC. INDICATIONS: The patient is a 65-year-old female who presents with reflux disease. Benefits and risks of the procedure were described. Informed consent was obtained. DESCRIPTION: The patient was brought into the endoscopy suite and laid in the left lateral decubitus position. An Olympus gastroscope was passed along the posterior oropharynx down to the distal esophagus where the squamocolumnar junction was e ncountered at 40 cm from the incisors. The stomach was entered and no bile reflux was found. Additional findings are listed below. Biopsies with cold forceps were obtained of the antrum. The first through third portion of the duodenum was examined and unremarkable. Retroflexion of the scope confirmed Hill grade 1 lower esophageal valve. The squamocolumnar junction demonstrated LA grade A erosive esophagitis. The stomach was desufflated. The patient tolerated the procedure well. FINDINGS: Squamocolumnar junction 40 cm from the incisors. Diaphragmatic hiatus at 40 cm. Hill grade A lower esophageal valve. LA grade A erosive esophagitis. No active duodenitis. Chronic gastritis RECOMMENDATIONS: Upper endoscopy as needed. Plan - Discharge Summary Discharge Rx Participant: No New Discharge Prescriptions: No Action Isosorbide Mononitrate ER [Imdur] 30 mg PO BID Metoprolol Succinate (ER) [Toprol XL] 25 mg PO HS Clopidogrel [Plavix] 75 mg PO DAILY Evolocumab [Repatha Syringe] 140 mg SQ Q14D Fluticasone/Salmeterol [Advair 250-50 Diskus] 1 inhalation PO BID Pantoprazole [Protonix] 40 mg PO BID Discharge Medication List Clopidogrel [Plavix] 75 mg PO DAILY 08/30/20 [History] Evolocumab [Repatha Syringe] 140 mg SQ Q14D 08/30/20 [History] Isosorbide Mononitrate ER [Imdur] 30 mg PO BID 08/30/20 [History] Metoprolol Succinate (ER) [Toprol XL] 25 mg PO HS 08/30/20 [History] Fluticasone/Salmeterol [Advair 250-50 Diskus] 1 inhalation PO BID 06/04/21 [History] Pantoprazole [Protonix] 40 mg PO BID 06/04/21 [History]
[2021-06-06 09:06] VITALS: BP 118/79; PULSE 64; RESP 16
== END 2021-06-06 09:26 | disposition home or self-care (01) ==
LOC: ORWHC2ENDO 07:33
PROVIDERS: ATTEND Surgery Plastic and Reconstructive Surgery
DX: K21.00 Gastro-esophageal reflux disease with esophagitis, without bleeding (principal); K29.50 Unspecified chronic gastritis without bleeding; K44.9 Diaphragmatic hernia without obstruction or gangrene; I10 Essential (primary) hypertension; J44.9 Chronic obstructive pulmonary disease, unspecified; E78.5 Hyperlipidemia, unspecified; I25.2 Old myocardial infarction; I25.10 Atherosclerotic heart disease of native coronary artery without angina pectoris; F17.210 Nicotine dependence, cigarettes, uncomplicated; M19.90 Unspecified osteoarthritis, unspecified site; Z95.5 Presence of coronary angioplasty implant and graft; Z79.02 Long term (current) use of antithrombotics/antiplatelets; Z79.899 Other long term (current) drug therapy; Z88.8 Allergy status to other drugs, medicaments and biological substances; Z90.49 Acquired absence of other specified parts of digestive tract; Z98.890 Other specified postprocedural states; Z90.710 Acquired absence of both cervix and uterus; Z96.651 Presence of right artificial knee joint; Z90.89 Acquired absence of other organs; Z97.2 Presence of dental prosthetic device (complete) (partial); Z80.9 Family history of malignant neoplasm, unspecified
CPT/HCPCS: 88305; 43239; J2001; J2704

== ENCOUNTER → 2022-03-03 | Outpatient (CLI) | payer MEDICARE, OTHER ==
[2022-03-03 15:12] LABS: ALT 13 U/L (8-44); AST 17 U/L (13-35); Chol/HDL Ratio 2.72 Ratio; LDL Cholesterol,Calculated 95.3 mg/dL (0.0-131.0)
== END | disposition home or self-care (01) ==
LOC: LABWHC1 09:36
PROVIDERS: ATTEND Internal Medicine Cardiovascular Disease
DX: E78.2 Mixed hyperlipidemia (principal)
CPT/HCPCS: 36415; 80061; 84450; 84460

== ENCOUNTER 2022-08-08 09:33 | Day surgery (SDC) | payer MEDICARE, OTHER ==
[2022-08-06 11:04] VITALS: BMI 27.1
[~2022-08-08 09:33] MED LIST: LACTATED RINGERS 1,000 ML IV SCH; LIDOCAINE 1% (10MG/ML) FOR IV START INTRADERMA PRN
[2022-08-08 10:46] VITALS: TEMP 97.5
[2022-08-08] MEDS ORDERED: LIDOCAINE 2% INJ 20 MG/ML (2 ML VIAL) ONE (12:23)
[2022-08-08] MEDS ORDERED: PROPOFOL 10 MG/ML 20 ML VIAL IV ONE (12:23)
--- NOTE | 2022-08-08 12:45 | P.PCN ---
Date of Procedure: 08/08/22 Procedure(s) Performed: BRIEF HISTORY: Patient is a 66-year-old pleasant white female scheduled for an elective colonoscopy as a part of evaluation of change in bowel habits. PROCEDURE PERFORMED: Colonoscopy with snare polyp rectum. PREOPERATIVE DIAGNOSIS: Change in bowel habits. IV sedation per Anesthesia. PROCEDURE: After informed consent was obtained, the patient, was brought into the endoscopy unit. IV sedation was administered by Anesthesia under continuous monitoring. Digital rectal examination was normal. Initially the Olympus CF-160 flexible video colonoscope was then inserted in the rectum, gradually advanced into the cecum without any difficulty. Careful examination was performed as the scope was gradually being withdrawn. Ileocecal valve and the appendiceal orifice were visualized and appeared normal. Prep was excellent. Mucosa of the cecum, appeared normal. In the ascending colon there was a 5 mm sessile polyp removed by snare polypectomy. In the transverse colon there was a 4 mm polyp removed by snare polypectomy. Rest of the ascending colon, transverse colon, descending colon, sigmoid colon, and rectum appeared normal. In the sigmoid colon there was a 6 mm polyp removed by snare polypectomy. 1 Retroflexion was performed in the rectum and no lesions were seen. The patient tolerated the procedure well. IMPRESSION: 5 mm ascending colon polyp status post polypectomy 4 mm transverse colon polyp status post polypectomy 6 mm sigmoid colon polyp status post polypectomy RECOMMENDATIONS: Findings of this examination were discussed with the patient as well as a family. She was advised to follow with the biopsy results. If the biopsy results adenoma she can have a repeat colonoscopy in 5 years.
[2022-08-08 13:10] VITALS: BP 140/83; PULSE 64; RESP 18
== END 2022-08-08 13:50 | disposition home or self-care (01) ==
LOC: ORWHC2ENDO 09:33
PROVIDERS: ATTEND Internal Medicine Gastroenterology
DX: D12.2 Benign neoplasm of ascending colon (principal); D12.3 Benign neoplasm of transverse colon; I25.10 Atherosclerotic heart disease of native coronary artery without angina pectoris; I25.2 Old myocardial infarction; Z95.5 Presence of coronary angioplasty implant and graft; E78.5 Hyperlipidemia, unspecified; J44.9 Chronic obstructive pulmonary disease, unspecified; F17.200 Nicotine dependence, unspecified, uncomplicated; Z79.02 Long term (current) use of antithrombotics/antiplatelets; Z79.899 Other long term (current) drug therapy
CPT/HCPCS: 88305; 45385; J2704; J2001

== ENCOUNTER → 2023-04-29 | Outpatient (CLI) | payer MEDICARE, OTHER ==
[2023-04-29 16:25] LABS: ALT 11 U/L (8-44); Chol/HDL Ratio 2.75 Ratio; LDL Cholesterol,Calculated 91.8 mg/dL (0.0-131.0)
== END | disposition home or self-care (01) ==
LOC: LABWHC1 08:48
PROVIDERS: ATTEND Internal Medicine Cardiovascular Disease
DX: E78.2 Mixed hyperlipidemia (principal)
CPT/HCPCS: 36415; 80061; 84450; 84460

== ENCOUNTER → 2023-10-07 | Outpatient (CLI) | payer MEDICARE, OTHER ==
--- NOTE | 2023-10-15 21:22 | MM ---
Reason for Exam: Screening (asymptomatic). Last mammogram was performed 23 year(s) and 4 month(s) ago. Patient History: Menarche at age 11. Left ovary removed at age 21. Right ovary removed at age 21. Hysterectomy at age 21. Postmenopausal. Patient used Estrogen for 23 years. Sister had breast cancer. Mother had breast cancer. Risk Values: Natalia 5 year model risk: 8.1%. NCI Lifetime model risk: 23.0%. Prior Study Comparison: No prior studies available for comparison. Tissue Density: The breasts are heterogeneously dense, which may obscure small masses. Findings: Analyzed By CAD. Central outer asymmetric density left CC view posterior depth for which further evaluation is recommended. Additional asymmetric densities on the left. No priors available for comparison purposes. Benign oil cyst calcification on the right. Otherwise, no discrete abnormality seen. Overall Assessment: Incomplete: need additional imaging evaluation, BI-RAD 0 Management: Special View Mammogram of the left breast. Diagnostic Breast Ultrasound of both breasts. Additional views left breast followed by bilateral whole breast ultrasound as there are no priors available for comparison and given patient's significantly elevated risk scores. [facility] will attempt to contact patient to return for supplemental views and ultrasound if indicated. Electronically signed and approved by: Nikolai Khan M.D. Radiologist
== END | disposition home or self-care (01) ==
LOC: RADMAMWWP 08:43
PROVIDERS: ATTEND Family Medicine
DX: Z12.31 Encounter for screening mammogram for malignant neoplasm of breast (principal); Z78.0 Asymptomatic menopausal state; Z80.3 Family history of malignant neoplasm of breast; R92.333 Mammographic heterogeneous density, bilateral breasts
CPT/HCPCS: 77067

== ENCOUNTER → 2023-10-20 | Outpatient (CLI) | payer MEDICARE, OTHER ==
--- NOTE | 2023-10-20 10:33 | MM ---
Reason for Exam: Additional evaluation requested from abnormal screening. Last screening mammogram was performed less than 1 month ago. Patient History: Menarche at age 11. Left ovary removed at age 21. Right ovary removed at age 21. Hysterectomy at age 21. Postmenopausal. Patient used Estrogen for 23 years. Sister had breast cancer. Mother had breast cancer. Risk Values: Natalia 5 year model risk: 8.1%. NCI Lifetime model risk: 23.0%. Prior Study Comparison: 06/09/2000 Bilateral Screening Mammogram, [facility]. 10/07/2023 Bilateral MG screening mammo w CAD, [facility]. Tissue Density: Left: There are scattered areas of fibroglandular density. Findings: Analyzed By CAD. No persistent mass or distortion. Bilateral ultrasound recommended given strong family history. Overall Assessment: Incomplete: need additional imaging evaluation, BI-RAD 0 Management: Diagnostic Breast Ultrasound of both breasts. . Results were given to the patient verbally at the time of exam. Patient should continue monthly self-breast exams. A clinical breast exam by your physician is recommended on an annual basis. This exam should not preclude additional follow-up of suspicious palpable abnormalities. Note on Natalia scores and lifetime risk: 1. A Natalia score greater than 3% is considered moderate risk. If this is the case, consider specialist referral to assess eligibility for a risk reducing agent. 2. If overall lifetime risk for the development of breast cancer is 20% or higher, the patient may qualify for future screening with alternating mammogram and breast MRI. Electronically signed and approved by: Thomas Juarez M.D. Radiologis
--- NOTE | 2023-10-20 11:09 | USB ---
Reason for Exam: Additional evaluation requested from abnormal screening. Patient History: Menarche at age 11. Left ovary removed at age 21. Right ovary removed at age 21. Hysterectomy at age 21. Postmenopausal. Patient used Estrogen for 23 years. Sister had breast cancer. Mother had breast cancer. Risk Values: Natalia 5 year model risk: 8.1%. NCI Lifetime model risk: 23.0%. Technique: Method: Whole Breast Handheld. Prior Study Comparison: 06/09/2000 Bilateral Screening Mammogram, [facility]. 10/07/2023 Bilateral MG screening mammo w CAD, [facility]. Findings: The whole breast of both breasts, the axilla of both breasts and the retroareolar of both breasts were scanned. No solid or cystic masses are identified..No solid masses are identified. Small cysts noted right 3:00 position measuring 5 mm. Additional small complex cyst measuring 5 x 3 mm left breast 2:00 position 2 cm from the nipple. Mildly prominent retroareolar ducts. Overall Assessment: Benign, BI-RAD 2 Management: Screening Mammogram of both breasts in 1 year. A clinical breast exam by your physician is recommended on an annual basis and results should be correlated with mammographic findings. This exam should not preclude additional follow-up of suspicious palpable abnormalities. Results were given to the patient verbally at the time of exam. Electronically signed and approved by: Thomas Juarez M.D. Radiologis
== END | disposition home or self-care (01) ==
LOC: RADMAMWWP 09:49
PROVIDERS: ATTEND Family Medicine
DX: R92.322 Mammographic fibroglandular density, left breast (principal); R92.8 Other abnormal and inconclusive findings on diagnostic imaging of breast; Z78.0 Asymptomatic menopausal state; Z80.3 Family history of malignant neoplasm of breast
CPT/HCPCS: 77065; 76641; G0279; 77061

== ENCOUNTER 2024-03-11 07:46 | Day surgery (SDC) | payer MEDICARE, OTHER ==
[2024-03-11] MEDS: diazePAM 5 MG TAB PO STA (08:36)
[2024-03-11 09:41] VITALS: RESP 18; TEMP 98.1
--- NOTE | 2024-03-11 10:36 | FL ---
EXAMINATION TYPE: FL myelogram cervical DATE OF EXAM: 03/11/2024 10:31 AM COMPARISON: CT CLINICAL INDICATION:Female, 68 years old with history of Cervicalgia; FINDINGS: Informed consent was obtained including discussion of the risks and benefits. Timeout was taken per p rotocol. Real-time fluoroscopy was performed to localize the lumbar spine access site. The patient wa s prepped and draped. Under sterile technique with local anesthesia a 22-gauge spinal needle was intr oduced into the arachnoid space with return of clear CSF. A total of 16 cc of Isovue-300 M was inject ed with appropriate opacification of the thecal sac. Total fluoroscopy time was 1.53 minutes Total fluoroscopic images 0. Radiographs taken: 16 DAP: Not Reported by machine [email or web address] IMPRESSION: Successful lumbar puncture with injection for CT myelogram. CT pending. [facility], , 03/11/2024 10:34 AM
--- NOTE | 2024-03-11 11:03 | CT ---
CT cervical spine with intrathecal contrast, myelogram. HISTORY: Neck pain COMPARISON: None. TECHNIQUE: Multiple axial images obtained from the skull base through the upper thoracic spine follow ing intrathecal administration of nonionic IV contrast material. FINDINGS: The craniocervical junction relationships and prevertebral soft tissues are normal. There is anterior and interbody fusion of C4 and C5 there is interbody fusion of C6 and C7 with bone graft. There is anatomic alignment throughout the cervical region. The C2-3 disc space is well-preserved. There is mild narrowing of the C3-4 disc space indicating mild degenerative disc disease. There is moderate facet arthropathy throughout the cervical spine. There is mild to moderate degenera tion of the uncovertebral joints at C3-4 C4-5 C5-6 and C6-7. There is no bony encroachment of the cervical, cervical stenosis. There is mild bony encroachment of the neuroforamina at C3-4 on the right and at C4-5 on the right. Impression: 1. Postsurgical changes of cervical fusion as described above. 2. No cervical stenosis. 3 mild bony neuroforaminal stenosis at C3-4 and C4-5 on the right. [facility], Workstation: [email or web address] [email or web address], 03/11/2024 11:01 AM
[2024-03-11 13:16] VITALS: PULSE 66
[2024-03-11 13:18] VITALS: BP 117/68
== END 2024-03-11 13:24 | disposition home or self-care (01) ==
LOC: RADPROMAIN 07:46
PROVIDERS: ATTEND Orthopaedic Surgery Orthopaedic Surgery of the Spine
DX: M48.02 Spinal stenosis, cervical region (principal); M47.22 Other spondylosis with radiculopathy, cervical region; M79.12 Myalgia of auxiliary muscles, head and neck; M43.22 Fusion of spine, cervical region
CPT/HCPCS: 62302; 72126; Q9967

== ENCOUNTER → 2024-04-04 | Outpatient (CLI) | payer MEDICARE, OTHER ==
[2024-04-04 11:07] VITALS: BP 131/85; PULSE 85; RESP 19; TEMP 98
--- NOTE | 2024-04-04 17:17 | P.PAINPG ---
PQRS Measure Charge Sheet Comment: HISTORY OF PRESENT ILLNESS: A 68 yr old female as a referral from Dr Miller presents today w severe and chronic neck pain > 1 yr secondary to C4-C7 ACDF, post laminectomy syndrome for evaluation. Pt states pain level is provoked at 8-9 /10 in intensity, constant, localized in the cervical spine, predominantly axial, achy in character w occasional shooting pain towards the UEs. Pain is provoked by over activity. Pain is alleviated by PT x 6 wks which ended in 2021, physician guided home stretches daily since 2021, ice, medications (, repositioning and rest . Cervical disability score at 38. PMH: OA, COPD, GERD, Hyperlipidemia, HTN, [place] (2012) PSH: EGD/ Colonoscopy (2022), Appendectomy, Back Surgery, C4-C7 Fusion x2, Cholecystectomy, Heart Catheterization With Stent (2013), Hysterectomy, R Total Knee Replacement, Tonsillectomy, Sinus Surgery x2, SH: Daily tobacco use, Occ ETOH use, No illicit drug use FH: Sis- CA. Mo- CA All: See list Meds: See list REVIEW OF ORGAN SYSTEMS: CONSTITUTIONAL: No fevers or chills. No recent weight loss. NEUROLOGICAL: + numbness and tingling along the distal extremities. No seizure disorders or headaches. MUSCULOSKELETAL: + pain PSYCHIATRIC: Denies current depression or suicidal thoughts. Physical Examinations : Constitutional : Cooperative , not in acute distress . Neurologic : Cranial nerve II to XII intact. No focal neurological deficits. Psychiatric : alert & oriented x 3. Matching mood & appropriate affect. Judgment & insight intact. Musculoskeletal : Cervical Spine +Anterior incisional scar intact Motor strength in the deltoid and biceps: Normal right side. Normal Left side Motor strength biceps and the wrist extensors: Normal right side . Normal left side Motor strength in the triceps muscle: Normal right side. Normal left side Deep tendon reflexes: Normal at the biceps. Normal at Brachioradialis. Normal at triceps Vertebral body tenderness to deep palpation over C7 Cervical facet loading test: Spurling test: positive BL C7-T1 Neck distraction test: positive bilaterally Girish sign: positive bilaterally Lumbar spine Motor strength lower extremities ,thigh and legs 5/5 Right side , 5/5 Left side Deep tendon reflexes : Normal Knee Jerk. Normal Ankle Jerk Vertebral body tenderness over Miramontes Test positive Lumbar facet Loading Test: positive Right / positive Left Range of motion of the lumbar spine Flexion 30 degrees, extension 10 degrees Straight Leg Raise test: Left/ Right positive at degrees Hayley test: positive right / positive left. Severe tenderness over the Sacroiliac joint on the Right / Left sides Gaenslen test: positive bilaterally Seated flexion test: positive bilaterally. Sacral spine : Severe tenderness over the Sacroiliac joint: right side / left side Range of motion: Flexion of the lumbar spine <60 degrees Range of motion: Extension of the lumbar spine <20 degrees Gaenslen's Test positive Hayley test: positive right side / left side Thigh Thrust Test Sacral Thrust Test Imaging: MRI non contrast cervical spine from 01/20/24 reviewed Assessment/ Plan : C4-C7 ACDF, post laminectomy syndrome Recommendation of CATRINA C7-T1 #1. Risks, benefits of procedure discussed and patient verbalized understanding. Admits to anti- coagulant use or medical history of diabetes. Protocol for discontinuation/ continuation of medications zafar procedure discussed. Flexeril 10mg PO BID prn spams #60 w 1 RF. Valium 5mg 1-2 tabs PO 1hr prior to procedure. 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 Use, side effects, adverse reactions, safe storage discussed. All questions answered. I have spent greater than 30 minutes on patient care today. Dr Whiting was available by phone for the evaluation of this patient. The time was used to review the medical records including relevant urine studies and Prescription history (MAPs), review of the available imaging, evaluation and examination of the patient, coordination of care with the medical staff and if applicable referring physicians, as well as creation of the medical record - Pain Location Neck Non-Pharmacological Interventions: Ice Pharmacological Interventions: PRN Medication PQRS Narrative: Smoking Status Never smoker Home Medications: Ambulatory Orders Clopidogrel [Plavix] 75 mg PO DAILY 08/30/20 Evolocumab [Repatha Syringe] 140 mg SQ Q14D 08/30/20 Isosorbide Mononitrate ER [Imdur] 30 mg PO BID 08/30/20 Metoprolol Succinate (ER) [Toprol XL] 25 mg PO QAM 08/30/20 Ezetimibe [Zetia] 10 mg PO HS 08/06/22 Cyclobenzaprine [Flexeril] 10 mg PO BID PRN 30 Days #60 tab 04/04/24 diazePAM [Valium] 5 mg PO DAILY PRN 1 Days #2 tab 04/04/24 Controlled Substance Measures - Controlled Substance Measures Is patient prescribed a controlled substance at discharge?: Yes When asked, does pt state using other controlled substances?: No If prescribed controlled substance>3 days was MAPS reviewed?: Prescribed <3 Days
== END ==
LOC: PNWHC3 09:31
PROVIDERS: ATTEND Specialist
DX: M43.22 Fusion of spine, cervical region (principal); M96.1 Postlaminectomy syndrome, not elsewhere classified; G89.29 Other chronic pain; Z88.8 Allergy status to other drugs, medicaments and biological substances
CPT/HCPCS: 99202

== ENCOUNTER 2024-04-19 05:57 | Day surgery (SDC) | payer MEDICARE, OTHER ==
[2024-04-19 06:27] VITALS: RESP 16; TEMP 97.1
[2024-04-19] MEDS ORDERED: IOPAMIDOL M300 15ML VIAL ONE (07:08)
[2024-04-19] MEDS ORDERED: DEXAMETHASONE SOD PHOSPHATE 10 MG/ML 1 ML VIAL ONE (07:08)
--- NOTE | 2024-04-19 07:24 | P.PCN ---
Description of Procedure: PROCEDURE 1. Injection of radio contrast material into cervical epidural space, cervical epidurogram, interpretation of cervical epidurogram, Cervical epidural steroid injection under fluoroscopic guidance, C7-T1 (fluoroscopy images available in the radiology department ) 2. Cervical epidurogram. PREOPERATIVE DIAGNOSIS: 1- Cervical Degenerative Disc Diseases 2- Cervical radiculopathy., 3-cervical spondylosis with cervical Facet arthropathy without myelopathy.4-cervical spinal stenosis POSTOPERATIVE DIAGNOSIS: : 1- Cervical Degenerative Disc Diseases , 2- Cervical radiculopathy. 3-,cervical spondylosis with cervical Facet arthropathy without myelopathy. 4-cervical spinal stenosis ANESTHESIA: Local anesthetics infiltration. In the OR continuous pulse ox, EKG, blood pressure and verbal communication was maintained. EBL : None PROCEDURE INDICATION: The patient with neck pain and radiculitis unresponsive to conservative treatment consents for procedure. Discussed the procedure, alternatives and possible complications which may include increased pain, infection, bleeding, nerve damage, paralysis all of which could be permanent. Patient understands and all questions were answered. PROCEDURE DESCRIPTION : After getting consent patient was taken to the OR , positioned in prone position and time out was completed. A pillow was placed under the patients chest to increase the cervical interlaminar space. The cervical area was prepped and draped in the usual sterile fashion. Using anterior-posterior fluoroscopy, interlaminar space was identified and the skin over this site was marked and then infiltrated with 1% lidocaine subcutaneously. Subsequently, a 20-gauge 3-1/2-inch Tuohy epidural needle was inserted and advanced toward the epidural space with the loss of resistance technique using a syringe filled with preservative-free normal saline and guided by AP and lateral fluoroscopy. Negative CSF, negative blood, negative paresthesia. The correct needle position in the epidural space was verified with the injection of 2 mL of the water soluble contrast dye Isovue-200 and observing an excellent epidurogram with the epidural spread of the dye, after repeat negative aspiration 3 mL solution was injected which consists of 1 mL of preservative-free normal saline mixed with 2 mL of 20 mg dexamethasone and a washout of epidurogram was seen. Needle was withdrawn intact, skin was cleansed, and bandages were applied. Disposition: Patient tolerated the procedure well. No complication. Patient was placed in supine position and transferred to the recovery room area in stable condition and there was no evidence of upper or lower extremity motor or sensory deficit after the procedure patient was discharged from recovery room after discharge criteria met and home discharge instructions was given by the staff and patient will follow with the pain clinic in 2-4 weeks
[2024-04-19] MEDS ORDERED: LACTATED RINGERS 1,000 ML IV SCH (07:30)
--- NOTE | 2024-04-19 07:35 | FL ---
EXAMINATION TYPE: FL guided pain mgmt statistic DATE OF EXAM: 04/19/2024 HISTORY: Fluoroscopy time Total dose area product (DAP) in uGy*m?, mGy*cm? (or similar): 0.48405 IMPRESSION: 1. Fluoroscopy time. [facility], , 04/19/2024 7:33 AM
[2024-04-19 07:48] VITALS: BP 125/81; PULSE 71
== END 2024-04-19 08:00 | disposition home or self-care (01) ==
LOC: ORPAIN 05:57
PROVIDERS: ATTEND Pain Medicine Interventional Pain Medicine
DX: M50.13 Cervical disc disorder with radiculopathy, cervicothoracic region (principal); M47.22 Other spondylosis with radiculopathy, cervical region; M48.02 Spinal stenosis, cervical region; Z88.8 Allergy status to other drugs, medicaments and biological substances
CPT/HCPCS: 62321; J1100; Q9967

== ENCOUNTER 2024-05-27 08:03 | Day surgery (SDC) | payer MEDICARE, OTHER ==
[2024-05-24 16:29] VITALS: BMI 29.9
[~2024-05-27 08:03] MED LIST changes: -LIDOCAINE 1% (10MG/ML) FOR IV START INTRADERMA PRN
[2024-05-27 08:27] VITALS: TEMP 98.2
[2024-05-27] MEDS ORDERED: IOPAMIDOL M200 10 ML VIAL ONE (09:30)
[2024-05-27] MEDS ORDERED: DEXAMETHASONE SOD PHOSPHATE 10 MG/ML 1 ML VIAL ONE (09:30)
--- NOTE | 2024-05-27 09:38 | P.PCN ---
Date of Procedure: 05/27/24 Procedure(s) Performed: . PROCEDURE 1. Cervical epidural steroid injection under fluoroscopic guidance, C7-T1 (fluoroscopy images available in the radiology department ) 2. Cervical epidurogram. PREOPERATIVE DIAGNOSIS: 1- Cervical Degenerative Disc Diseases 2- Cervical radiculopathy., 3-cervical spondylosis with cervical Facet arthropathy without myelopathy.4-cervical spinal stenosis POSTOPERATIVE DIAGNOSIS: : 1- Cervical Degenerative Disc Diseases , 2- Cervical radiculopathy. 3-,cervical spondylosis with cervical Facet arthropathy without myelopathy. 4-cervical spinal stenosis ANESTHESIA: Local anesthesia with lidocaine 1% 3 ml only EBL 0 PROCEDURE INDICATION: The patient with neck pain and radiculitis unresponsive to conservative treatment consents for procedure. PROCEDURE DESCRIPTION / TECHNIQUE: The patient was seen and identified in the preoperative area. Risks, benefits, complications, including but not limited to infections ,bleeding , allergic reactions to the medications ,and not complete pain releife, and alternatives were discussed with the patient, the patient agreed to proceed with the procedure and signed the consent. Patient was taken to the OR and time out was completed. The patient was placed in the prone position on the procedure table. A pillow was placed under the patients chest to increase the cervical interlaminar space. The cervical area was prepped and draped in the usual sterile fashion. Vital signs were closely monitored during the procedure. Using anterior-posterior fluoroscopy, the C7-T1 interlaminar space was identified and the skin over this site was marked and then infiltrated with 1% lidocaine subcutaneously. Subsequently, a 20-gauge 3-1/2-inch Tuohy epidural needle was inserted and advanced toward the epidural space by means of the ``hanging-drop technique and guided by AP and lateral fluoroscopy. The correct needle position in the epidural space was verified with the injection of 2 mL of the water soluble contrast dye Isovue-200 and observing an excellent epidurogram with the epidural spread of the dye, after negative aspiration for blood and CSF and in the absence of paresthesias. then, mixture containing 20 mg Dexamethasone and 2 ml of preservative-free normal saline injected and a washout of epidurogram was seen. Needle was withdrawn intact, skin was cleansed, and bandages were applied. Complications= none. Disposition= patient was placed in supine position and transferred to the recovery room area in stable condition and there was no evidence of upper or lower extremity motor or sensory deficit after the procedure patient was discharged from recovery room after discharge criteria met and home discharge instructions was given by the staff and patient will follow with the pain clinic in 2-4 weeks. Plavix last dose was 8 days ago
--- NOTE | 2024-05-27 09:51 | FL ---
EXAMINATION TYPE: FL guided pain mgmt statistic DATE OF EXAM: 05/27/2024 CLINICAL INDICATION: Female, 68 years old with history of PAIN; [facility], TECHNIQUE: Fluoroscopy. COMPARISON: None. FINDINGS: Fluoroscopic guidance was provided during pain relief procedure performed by Dr. Whiting . A total of 8.7 seconds of fluoroscopic time was utilized during the procedure and one image was ac quired. Image acquired shows needle localization at the cervicothoracic junction. Surgical change to the mid cervical spine is noted. Total DAP: 0.95495 mGym2. IMPRESSION: As Above. [facility], , 05/27/2024 9:48 AM
[2024-05-27 10:01] VITALS: BP 140/82; PULSE 68; RESP 18
== END 2024-05-27 10:14 | disposition home or self-care (01) ==
LOC: ORPAIN 08:03
PROVIDERS: ATTEND Specialist
DX: M48.02 Spinal stenosis, cervical region (principal); M47.22 Other spondylosis with radiculopathy, cervical region; M50.10 Cervical disc disorder with radiculopathy, unspecified cervical region; Z88.9 Allergy status to unspecified drugs, medicaments and biological substances
CPT/HCPCS: 62321; J1100; Q9966

== ENCOUNTER → 2024-06-16 | Outpatient (CLI) | payer MEDICARE, OTHER ==
[2024-06-16 13:25] VITALS: BP 138/70; PULSE 72; RESP 19; TEMP 98.4
--- NOTE | 2024-06-16 14:12 | P.PAINPG ---
PQRS Measure Charge Sheet Comment: HISTORY OF PRESENT ILLNESS: A 68 yr old female presents today w severe and chronic neck pain > 1 yr secondary to C4-C7 ACDF, post laminectomy syndrome for evaluation s/p CATRINA C7-T1 #2. Pt states she experienced 40% pain relief x 2 wks s/p procedure. Pt states pain level is provoked at 4 /10 in intensity, constant, localized in the cervical spine, predominantly axial, achy in character w occasional shooting pain towards the UEs. Pain is provoked by over activity. Pain is alleviated by PT x 6 wks which ended in 2021, physician guided home stretches daily since 2021, ice, medications, topical, use of a cane for ambulatory assistance, repositioning and rest. Interventional procedrues include CATRINA C7-T1 x2 (05/24) Medications include Flexeril, BioFreeze REVIEW OF ORGAN SYSTEMS: CONSTITUTIONAL: No fevers or chills. No recent weight loss. NEUROLOGICAL: + numbness and tingling along the distal extremities. No seizure disorders or headaches. MUSCULOSKELETAL: + pain PSYCHIATRIC: Denies current depression or suicidal thoughts. Physical Examinations : Constitutional : Cooperative , not in acute distress . Neurologic : Cranial nerve II to XII intact. No focal neurological deficits. Psychiatric : alert & oriented x 3. Matching mood & appropriate affect. Judgment & insight intact. Musculoskeletal : Cervical Spine +Anterior incisional scar intact Motor strength in the deltoid and biceps: Normal right side. Normal Left side Motor strength biceps and the wrist extensors: Normal right side . Normal left side Motor strength in the triceps muscle: Normal right side. Normal left side Deep tendon reflexes: Normal at the biceps. Normal at Brachioradialis. Normal at triceps Vertebral body tenderness to deep palpation over C7 Cervical facet loading test: Spurling test: positive BL C7-T1 Neck distraction test: positive bilaterally Girish sign: positive bilaterally Lumbar spine Motor strength lower extremities ,thigh and legs 5/5 Right side , 5/5 Left side Deep tendon reflexes : Normal Knee Jerk. Normal Ankle Jerk Vertebral body tenderness over Miramontes Test positive Lumbar facet Loading Test: positive Right / positive Left Range of motion of the lumbar spine Flexion 30 degrees, extension 10 degrees Straight Leg Raise test: Left/ Right positive at degrees Hayley test: positive right / positive left. Severe tenderness over the Sacroiliac joint on the Right / Left sides Gaenslen test: positive bilaterally Seated flexion test: positive bilaterally. Sacral spine : Severe tenderness over the Sacroiliac joint: right side / left side Range of motion: Flexion of the lumbar spine <60 degrees Range of motion: Extension of the lumbar spine <20 degrees Gaenslen's Test positive Hayley test: positive right side / left side Thigh Thrust Test Sacral Thrust Test Imaging: MRI non contrast cervical spine from 01/20/24 reviewed Assessment/ Plan : C4-C7 ACDF, post laminectomy syndrome May benefit from BL TFESI C6-C7 in the future. All questions answered. I have spent greater than 30 minutes on patient care today. Dr Whiting was available by phone for the evaluation of this patient. The time was used to review the medical records including relevant urine studies and Prescription history (MAPs), review of the available imaging, evaluation and examination of the patient, coordination of care with the medical staff and if applicable referring physicians, as well as creation of the medical record PQRS Narrative: Smoking Status Never smoker Narcotic Agreement Date Signed 04/04/24 Hx Alcohol Use (MH) No Home Medications: Ambulatory Orders Clopidogrel [Plavix] 75 mg PO HS 08/30/20 Evolocumab [Repatha Syringe] 140 mg SQ Q14D 08/30/20 Isosorbide Mononitrate ER [Imdur] 30 mg PO BID 08/30/20 Metoprolol Succinate (ER) [Toprol XL] 25 mg PO QAM 08/30/20 Ezetimibe [Zetia] 10 mg PO HS 08/06/22 Cyclobenzaprine [Flexeril] 10 mg PO BID PRN 30 Days #60 tab 04/04/24 diazePAM [Valium] 5 mg PO DAILY PRN 1 Days #2 tab 05/04/24 Controlled Substance Measures - Controlled Substance Measures Is patient prescribed a controlled substance at discharge?: No
== END ==
LOC: PNWHC3 12:49
PROVIDERS: ATTEND Specialist
DX: M96.1 Postlaminectomy syndrome, not elsewhere classified (principal); M43.22 Fusion of spine, cervical region; Z88.8 Allergy status to other drugs, medicaments and biological substances
CPT/HCPCS: 99212

== ENCOUNTER 2024-10-01 09:07 | Emergency (ER) | payer MEDICARE, OTHER ==
--- NOTE | 2024-10-01 09:29 | ED ---
General Adult HPI - General Chief complaint: Shortness of Breath Stated complaint: TOMY, Shaking Time Seen by Provider: 10/01/24 09:13 Source: patient, RN notes reviewed, old records reviewed Mode of arrival: ambulatory Limitations: no limitations - History of Present Illness Initial comments: 68-year-old female with history of COPD presenting with increased cough and dyspnea. Patient has had productive cough. No fever. No chest pain. No lower extremity pain or swelling. Patient was treated with antibiotics and oral steroids several weeks ago. Over the past several days she has had increased dyspnea secondary to her nebulizer not working. She denies fever. She states cough is productive of clear white sputum. - Related Data Home Medications Medication Instructions Recorded Confirmed Clopidogrel [Plavix] 75 mg PO HS 08/30/20 05/27/24 Evolocumab [Repatha Syringe] 140 mg SQ Q14D 08/30/20 05/27/24 Isosorbide Mononitrate ER [Imdur] 30 mg PO BID 08/30/20 05/27/24 Metoprolol Succinate (ER) [Toprol 25 mg PO QAM 08/30/20 05/27/24 XL] Ezetimibe [Zetia] 10 mg PO HS 08/06/22 05/27/24 Previous Rx's Medication Instructions Recorded Cyclobenzaprine [Flexeril] 10 mg PO BID PRN 30 Days #60 tab 04/04/24 diazePAM [Valium] 5 mg PO DAILY PRN 1 Days #2 tab 05/04/24 predniSONE 50 mg PO DAILY #5 tab 10/01/24 Allergies Allergy/AdvReac Type Severity Reaction Status Date / Time varenicline [From Chantix] Allergy skin Verified 10/01/24 09:12 sensitivity Review of Systems ROS Statement: Those systems with pertinent positive or pertinent negative responses have been documented in the HPI. ROS Other: All systems not noted in ROS Statement are negative. Past Medical History Past Medical History: Coronary Artery Disease (CAD), Cancer, Hyperlipidemia, Hypertension, Myocardial Infarction ([place]), Osteoarthritis (OA) Additional Past Medical History / Comment(s): [place] - though it was a med reaction but was having heart attack, skin cancer Last Myocardial Infarction Date:: AROUND 2020 History of Any Multi-Drug Resistant Organisms: None Reported Past Surgical History: Appendectomy, Back Surgery, Cholecystectomy, Heart Catheterization With Stent, Hysterectomy, Joint Replacement Additional Past Surgical History / Comment(s): RIGHT KNEE REPL. SINUS SURG. X2. NECK FUSION C2-C7, skin cancer removed on face. Past Anesthesia/Blood Transfusion Reactions: Motion Sickness, Postoperative Nausea & Vomiting (PONV) Date of Last Stent Placement:: 2010? Past Psychological History: Anxiety, Depression Smoking Status: Current every day smoker Past Alcohol Use History: Rare Past Drug Use History: None Reported - Past Family History Sister(s) Family Medical History: Cancer Additional Family Medical History / Comment(s): breast cancer General Exam Limitations: no limitations General appearance: alert, in no apparent distress Head exam: Present: atraumatic, normocephalic Eye exam: Present: normal appearance, PERRL ENT exam: Present: normal exam Neck exam: Present: normal inspection. Absent: tenderness, meningismus Respiratory exam: Present: respiratory distress (mild), wheezes, rhonchi, decreased breath sounds Cardiovascular Exam: Present: regular rate, normal rhythm GI/Abdominal exam: Present: soft. Absent: distended, tenderness, guarding Extremities exam: Absent: pedal edema, calf tenderness Neurological exam: Present: alert, oriented X3, CN II-XII intact. Absent: motor sensory deficit Psychiatric exam: Present: normal affect, normal mood Skin exam: Present: warm, dry, intact Course Vital Signs 10/01/24 10/01/24 10/01/24 09:10 09:37 10:05 Temperature 98.2 F 97.8 F Pulse Rate 74 66 75 Respiratory 24 20 Rate Blood Pressure 166/88 131/77 O2 Sat by Pulse 99 99 Oximetry 10/01/24 10/01/24 10:19 10:40 Temperature Pulse Rate 76 74 Respiratory 16 Rate Blood Pressure 146/95 O2 Sat by Pulse 97 Oximetry Medical Decision Making - Medical Decision Making Was pt. sent in by a medical professional or institution (, PA, TYPING BOOKKEEPER, urgent care, hospital, or skilled nursing...) When possible be specific @ -No Did you speak to anyone other than the patient for history (EMS, parent, family, police, friend...)? What history was obtained from this source @ -No Did you review nursing and triage notes (agree or disagree)? Why? @ -I reviewed and agree with nursing and triage notes Were old charts reviewed (outside hosp., previous admission, EMS record, old EK G, old radiological studies, urgent care reports/EKG's, skilled nursing records)? Report findings @ -No old charts were reviewed Differential Dyspnea: Coronary syndrome, arrhythmia, tamponade, asthma, COPD, pulmonary embolism, pneumonia, pneumothorax, pulmonary effusion, anaphylaxis, diabetic ketoacidosis, flailed chest, pulmonary contusion, diaphragmatic rupture, anemia, neuromuscular, this is not meant to be an all-inclusive list. EKG interpreted by me (3pts min.). @EKG: Sinus rhythm with PVC rate of 65, [place] interval 161, QRS duration 85, QTc [address] segment elevation. X-rays interpreted by me (1pt min.). @ -Chest x-ray negative for acute cardiopulmonary findings CT interpreted by me (1pt min.). @ -None done U/S interpreted by me (1pt. min.). @ -None done What testing was considered but not performed or refused? (CT, X-rays, U/S, labs)? Why? @ -None What meds were considered but not given or refused? Why? @ -None Did you discuss the management of the patient with other professionals (professionals i.e. , PA, TYPING BOOKKEEPER, lab, RT, psych nurse, sr. social media & mobile manager, physics and astronomy professor, teacher, corporate trust officer, bilingual patient support caseworker)? Give summary @ -No Was smoking cessation discussed for >3mins.? @ -No Was critical care preformed (if so, how long)? @ -No Were there social determinants of health that impacted care today? How? (Homelessness, low income, unemployed, alcoholism, drug addiction, transporta tion, low edu. Level, literacy, decrease access to med. care, senior living, rehab)? @ -No Was there de-escalation of care discussed even if they declined (Discuss DNR or withdrawal of care, Hospice)? DNR status @ -No What co-morbidities impacted this encounter? (DM, HTN, Smoking, COPD, CAD, Cancer, CVA, ARF, Chemo, Hep., AIDS, mental health diagnosis, sleep apnea, morbid obesity)? @COPD Was patient admitted / discharged? Hospital course, mention meds given and route, prescriptions, significant lab abnormalities, going to OR and other pertinent info. @ -[68-year-old female with cough and dyspnea, and a nonworking nebulizer at home. Patient is wheezing bilaterally. Mild respiratory distress. Given albuterol, Atrovent steroids in the emergency department with significant improvement. Laboratory testing is unremarkable. Chest x-ray is clear. Patient prefers discharge she states that she is obtained a nebulizer from a family member and would like to go home. Return parameters discussed. Undiagnosed new problem with uncertain prognosis? @ -No Drug Therapy requiring intensive monitoring for toxicity (Heparin, Nitro, Insulin, Cardizem)? @ -No Were any procedures done? @ -No Diagnosis/symptom? @ -COPD exacerbation Acute, or Chronic, or Acute on Chronic? @ -[Acute Uncomplicated (without systemic symptoms) or Complicated (systemic symptoms)? @ -Default Side effects of treatment? @ -No Exacerbation, Progression, or Severe Exacerbation? @ -No Poses a threat to life or bodily function? How? (Chest pain, [place], [place], pneumonia, PE, COPD, DKA, ARF, appy, cholecystitis, CVA, Diverticulitis, Homicidal, Suicidal, threat to staff... and all critical care pts) @ -Low risk at this time - Lab Data Result diagrams: 10/01/24 09:40 10/01/24 10:38 Lab Results 10/01/24 10/01/24 10/01/24 Range/Units 09:40 09:40 10:38 WBC 10.99 H (4.50-10.00) 10*3/uL RBC 4.85 (4.10-5.20) 10*6/uL Hgb 16.4 H (12.0-15.0) g/dL Hct 48.1 H (37.2-46.3) % MCV 99.2 H (80.0-97.0) fL MCH 33.8 H (27.0-32.0) pg MCHC 34.1 (32.0-37.0) g/dL Plt Count 202 (140-440) 10*3/uL MPV 11.8 (9.5-12.2) fL Immature Gran % (Auto) 0.5 % Neutrophils % 70.6 % Lymphocytes % 21.9 % Monocytes % 5.7 % Eosinophils % 0.6 % Basophils % 0.7 % Immature Gran # 0.06 H (0.00-0.04) 10*3/uL Neutrophils # 7.74 H (1.80-7.70) 10*3/uL Lymphocytes # 2.41 (0.90-5.00) 10*3/uL Monocytes # 0.63 (0.20-1.00) 10*3/uL Eosinophils # 0.07 (0.04-0.35) 10*3/uL Basophils # 0.08 (0.00-0.10) 10*3/uL PT 10.3 (10.0-12.5) sec INR 0.9 (<1.2) APTT 23.0 (22.0-30.0) sec Sodium (137-145) mmol/L Potassium (3.5-5.1) mmol/L Chloride (98-107) mmol/L Carbon Dioxide (22-30) mmol/L Anion Gap mmol/L BUN (7-17) mg/dL Creatinine (0.52-1.04) mg/dL Est GFR (CKD-EPI)AfAm (>60 ml/min/1.73 sqM) Est GFR (CKD-EPI)NonAf (>60 ml/min/1.73 sqM) Glucose (74-99) mg/dL Plasma Lactic Acid Kevan 1.6 (0.7-2.0) mmol/L Calcium (8.4-10.2) mg/dL Magnesium (1.6-2.3) mg/dL Total Bilirubin (0.2-1.3) mg/dL AST (14-36) U/L ALT (4-34) U/L Alkaline Phosphatase (38-126) U/L Troponin I (0.000-0.034) ng/mL NT-Pro-B Natriuret Pep pg/mL Total Protein (6.3-8.2) g/dL Albumin (3.5-5.0) g/dL 10/01/24 10/01/24 Range/Units 10:38 10:38 WBC (4.50-10.00) 10*3/uL RBC (4.10-5.20) 10*6/uL Hgb (12.0-15.0) g/dL Hct (37.2-46.3) % MCV (80.0-97.0) fL MCH (27.0-32.0) pg MCHC (32.0-37.0) g/dL Plt Count (140-440) 10*3/uL MPV (9.5-12.2) fL Immature Gran % (Auto) % Neutrophils % % Lymphocytes % % Monocytes % % Eosinophils % % Basophils % % Immature Gran # (0.00-0.04) 10*3/uL Neutrophils # (1.80-7.70) 10*3/uL Lymphocytes # (0.90-5.00) 10*3/uL Monocytes # (0.20-1.00) 10*3/uL Eosinophils # (0.04-0.35) 10*3/uL Basophils # (0.00-0.10) 10*3/uL PT (10.0-12.5) sec INR (<1.2) APTT (22.0-30.0) sec Sodium 141 (137-145) mmol/L Potassium 3.9 (3.5-5.1) mmol/L Chloride 108 H (98-107) mmol/L Carbon Dioxide 24 (22-30) mmol/L Anion Gap 9 mmol/L BUN 12 (7-17) mg/dL Creatinine 0.93 (0.52-1.04) mg/dL Est GFR (CKD-EPI)AfAm 73 (>60 ml/min/1.73 sqM) Est GFR (CKD-EPI)NonAf 63 (>60 ml/min/1.73 sqM) Glucose 99 (74-99) mg/dL Plasma Lactic Acid Kevan (0.7-2.0) mmol/L Calcium 9.6 (8.4-10.2) mg/dL Magnesium 2.1 (1.6-2.3) mg/dL Total Bilirubin 0.5 (0.2-1.3) mg/dL AST 22 (14-36) U/L ALT 16 (4-34) U/L Alkaline Phosphatase 46 (38-126) U/L Troponin I <0.012 (0.000-0.034) ng/mL NT-Pro-B Natriuret Pep 200 pg/mL Total Protein 7.0 (6.3-8.2) g/dL Albumin 4.5 (3.5-5.0) g/dL Disposition Clinical Impression: Acute exacerbation of chronic obstructive pulmonary disease Disposition: HOME SELF-CARE Condition: Fair Instructions (If sedation given, give patient instructions): COPD (Chronic Obstructive Pulmonary Disease) (ED) Prescriptions: predniSONE 50 mg PO DAILY #5 tab Is patient prescribed a controlled substance at d/c from ED?: No Referrals: Vinny Rasmussen MD [Primary Care Provider] - 1-2 days Time of Disposition: 11:22
[2024-10-01] MEDS: ALBUTEROL NEBULIZED 2.5 MG/3 ML INHALATION STA (10:02)
[2024-10-01] MEDS: IPRATROPIUM 0.5 MG/2.5 ML NEBU INHALATION STA (10:03)
[2024-10-01 10:06] LABS: Basophils # (A) 0.08 10*3/uL (0.00-0.10); Basophils % (A) 0.7 %; Eosinophils # (A) 0.07 10*3/uL (0.04-0.35); Eosinophils % (A) 0.6 %; HCT 48.1 % (37.2-46.3); HGB 16.4 g/dL (12.0-15.0); Lymphocytes # (A) 2.41 10*3/uL (0.90-5.00); Lymphocytes % (A) 21.9 %; MCH 33.8 pg (27.0-32.0); MCHC 34.1 g/dL (32.0-37.0); MCV 99.2 fL (80.0-97.0); Monocytes # (A) 0.63 10*3/uL (0.20-1.00); Monocytes % (A) 5.7 %; Neutrophils # (A) 7.74 10*3/uL (1.80-7.70); Neutrophils % (A) 70.6 %; Platelet Count 202 10*3/uL (140-440); RBC 4.85 10*6/uL (4.10-5.20); RDW 13.2 % (11.5-14.5); WBC 10.99 10*3/uL (4.50-10.00)
--- NOTE | 2024-10-01 10:06 | XR ---
EXAMINATION TYPE: XR chest 2V DATE OF EXAM: 10/01/2024 9:48 AM COMPARISON: Chest radiographs from 08/30/2020. CLINICAL INDICATION: Female, 68 years old with history of difficulty breathing; TECHNIQUE: XR chest 2V Frontal and lateral views of the chest. FINDINGS: Lungs/Pleura: There is flattening of the diaphragm with increased lucency of the lungs. No evidence o f pneumothorax, pleural effusion or focal consolidation. Pulmonary vascularity: Unremarkable. Heart/mediastinum: Cardiomediastinal silhouette is unremarkable. Musculoskeletal: No acute osseous pathology. There is fixation hardware in the lower cervical spine. IMPRESSION: 1. No acute cardiopulmonary disease process. 2. COPD changes. [facility], , 10/01/2024 10:03 AM
[2024-10-01] MEDS: methylPREDNISolone SOD SUCCI 125 MG/2 ML VIAL IV STA (10:35)
[2024-10-01 10:37] LABS: INR 0.9 (<1.2); Partial Thromboplastin Time 23.0 sec (22.0-30.0); Prothrombin Time 10.3 sec (10.0-12.5)
[2024-10-01 11:05] LABS: ALT 16 U/L (4-34); AST 22 U/L (14-36); African American GFR (CKD) 73 (>60 ml/min/1.73 sqM); Albumin 4.5 g/dL (3.5-5.0); Alkaline Phosphatase 46 U/L (38-126); Anion Gap 9 mmol/L; Blood Urea Nitrogen 12 mg/dL (7-17); Calcium 9.6 mg/dL (8.4-10.2); Carbon Dioxide 24 mmol/L (22-30); Chloride 108 mmol/L (98-107); Glucose 99 mg/dL (74-99); Magnesium 2.1 mg/dL (1.6-2.3); Non-African American GFR(CKD) 63 (>60 ml/min/1.73 sqM); Potassium 3.9 mmol/L (3.5-5.1); Sodium 141 mmol/L (137-145); Total Protein 7.0 g/dL (6.3-8.2)
[2024-10-01 11:13] LABS: NT-Pro-B-Type Natriuretic Pept 200 pg/mL
[2024-10-01 12:16] VITALS: BP 161/82; PULSE 75; RESP 18; TEMP 98
== END 2024-10-01 12:16 | disposition home or self-care (01) ==
LOC: EC 09:07
DX: J44.1 Chronic obstructive pulmonary disease with (acute) exacerbation (principal); F17.200 Nicotine dependence, unspecified, uncomplicated; Z88.8 Allergy status to other drugs, medicaments and biological substances
CPT/HCPCS: 36415; 94640; 93005; 83880; 80053; 83605; 83735; 84484; 85025; 85610; 85730; 71046; 99285; J2919